=== PATIENT | male | born 1970 | race Caucasian/White ===

== ENCOUNTER 2017-02-08 07:47 | Outpatient (CLI) | payer MEDICARE, OTHER ==
[~2017-02-08 07:47] MED LIST: DIPHENHYDRAMINE HCL 50 MG/ML VIAL IV PRN; FAMOTIDINE INJ/PF 20 MG/2 ML SDV IV PRN; IRON DEXTRAN COMPLEX 25 MG in NORMAL SALINE 100 ML IV PRN; IRON DEXTRAN COMPLEX 25 MG in SYRINGE, DISPOSABLE, 1 EACH IV PRN; IRON DEXTRAN COMPLEX IV PRN; METHYLPREDNISOLONE INJ 125 MG/2 ML SDV IV PRN; NORMAL SALINE 250 ML IV PRN; NORMAL SALINE IV PRN
[2017-02-08 09:10] VITALS: BP 114/68
== END 2017-02-08 15:15 | disposition home or self-care (01) ==
LOC: II 07:47 → 5TH 07:51 → II 15:15
PROVIDERS: ATTEND Internal Medicine Medical Oncology
PROC: 3E033GC Introduction of Other Therapeutic Substance into Peripheral Vein, Percutaneous Approach (ICD-10-PCS; principal; 2017-02-08)
DX: D50.8 Other iron deficiency anemias (principal); K51.018 Ulcerative (chronic) pancolitis with other complication
CPT/HCPCS: 96367; 96375; J1200; J1750; J2930; J7040; J3490; S0028; 96365

== ENCOUNTER → 2017-03-23 | Outpatient (CLI) | payer MEDICARE ==
--- NOTE | 2017-03-23 14:07 | RADIOLOGY REPORT (SQ) ---
EXAM DESCRIPTION: MRI LUMBAR SPINE WITHOUT COMPLETED DATE/TIME: 03/23/2017 1:37 pm REASON FOR STUDY: LUMBAR SPONDYLOSIS (M47.897), M47.892 OTHER SPONDYLOSIS, CERVICAL REGION M45.0 A NKYLOSING SPONDYLITIS OF MULTIPLE SITES IN SPINE M47.897 OTHER SPONDYLOSIS, LUMBOSACRAL REGION COMPARISON: None. TECHNIQUE: Sagittal and Axial imaging includes T1, T2, STIR and gradient echo sequences. Coronal T2/ HASTE imaging. LIMITATIONS: None. FINDINGS: VISUALIZED UPPER ABDOMEN: Limited evaluation. No acute or suspicious findings suggested. SEGMENTATION: No transitional anatomy. The lowest well-developed disc space is labeled L5-S1. ALIGNMENT: Anatomic. VERTEBRAE: Intact. BONE MARROW: Normal. No marrow replacement or reactive changes. DISC SIGNAL: There is loss of normal T2 signal seen within the disc spaces. There is some increased signal seen within the disc space at L3-L4 which may represent underlying edema. POSTERIOR ELEMENTS: Generally intact. No pars defect evident. HARDWARE: None in the spine. CORD AND CONUS: Normal in size and signal intensity. Conus at the appropriate level. SOFT TISSUES: No aortic aneurysm seen. No bulky retroperitoneal adenopathy or mass. No paraspinal mas s or fluid. L1-L2: No significant spinal stenosis or exit foraminal stenosis. No significant disc bulging. Ther e is facet hypertrophy. L2-L3: Minimal disc bulging. Facet hypertrophy. No significant spinal canal stenosis no neural fora zoe narrowing. L3-L4: Degenerative disc space narrowing and edema within the disc space. There is facet hypertrophy . Mild disc bulging. No focal disc protrusion. No spinal canal stenosis. No neural foraminal narr owing. L4-L5: Circumferential disc bulging causing effacement of the anterior thecal sac. There is facet hy pertrophy and mild ligamentum flavum thickening. Minimal to mild spinal canal stenosis. Moderate bi lateral neural foraminal narrowing. L5-S1: Circumferential disc bulging without focal disc protrusion. Facet hypertrophy mild ligamentum flavum thickening. No spinal canal stenosis. Mild -moderate bilateral neural foraminal narrowing. LOWER THORACIC: Incompletely imaged. No stenosis seen. SACRUM: Visualized upper sacrum intact. OTHER: No other significant findings. IMPRESSION: 1. Multilevel degenerative disc disease and facet disease throughout the lumbar spine as detailed above. No acute fracture. Spinal alignment is intact. 2. Minimal to mild spinal canal stenosis noted at L4-L5 secondary to disc and facet disease. 3. New degenerative neural foraminal narrowing noted bilaterally at L4-L5 which is moderate. Degene rative neural foraminal narrowing noted L5-S1 bilaterally which is [id number]. TECHNICAL DOCUMENTATION: JOB ID: [id number] [employer]- All Rights Reserved
--- NOTE | 2017-03-23 14:13 | RADIOLOGY REPORT (SQ) ---
EXAM DESCRIPTION: MRI CERVICAL SPINE WITHOUT COMPLETED DATE/TIME: 03/23/2017 1:37 pm REASON FOR STUDY: CERVICAL SPONDYLOSIS (M47.892) M47.892 OTHER SPONDYLOSIS, CERVICAL REGION M45.0 ANKYLOSING SPONDYLITIS OF MULTIPLE SITES IN SPINE M47.897 OTHER SPONDYLOSIS, LUMBOSACRAL REGION COMPARISON: 05/25/2013 TECHNIQUE: Sagittal and Axial imaging includes T1, T2, STIR and gradient echo sequences. LIMITATIONS: None. FINDINGS: ALIGNMENT: There is straightening of the normal cervical lordosis. Alignment is otherwise intact. VERTEBRAE: Intact. There appears to be some ankylosis of the osteophytes along the anterior surface of the cervical spine. BONE MARROW: Heterogeneous marrow signal likely representing fatty replacement. No worrisome lesion. DISCS: There is loss of normal signal seen within the disc spaces throughout suggestive of degenerati ve disc disease. Loss of signal is most pronounced in the lower cervical spine. HARDWARE: None in the spine. CORD AND BASE OF BRAIN: Normal in size and signal intensity. SOFT TISSUES: No soft tissue masses. C1-C2: No significant spinal stenosis. C2-C3: No significant spinal stenosis or exit foraminal stenosis. C3-C4: Disc bulging without focal disc protrusion. No significant spinal canal stenosis. No neural foraminal narrowing. C4-C5: Circumferential disc bulging without focal disc protrusion. No neural foraminal narrowing. N o significant spinal canal stenosis. C5-C6: Circumferential disc bulging without focal disc protrusion. Mild bilateral neural foraminal n arrowing. No significant spinal canal stenosis. C6-C7: Circumferential disc bulging without focal disc protrusion. Mild bilateral neural foraminal n arrowing. No spinal canal stenosis. C7-T1: No significant spinal stenosis or exit foraminal stenosis. UPPER THORACIC: Incompletely imaged. No significant spinal stenosis or exit foraminal stenosis. OTHER: No other significant finding. IMPRESSION: Multilevel degenerative disc disease and spondylosis of the cervical spine most pronounc ed in the lowers the cervical spine. This appears to have progressed in comparison to the study from 2012. There also appears to be some ankylosis of the osteophytes along the anterior surface of spin e. There is straightening of the normal cervical lordosis. No significant spinal canal stenosis. T here is neural foraminal narrowing noted at C5-C6 and C6-C7 which is mild in nature. TECHNICAL DOCUMENTATION: JOB ID: [id number] [facility] [employer]- All Rights Reserved
--- NOTE | 2017-03-23 14:16 | RADIOLOGY REPORT (SQ) ---
EXAM DESCRIPTION: STERNUM COMPLETED DATE/TIME: 03/23/2017 2:07 pm REASON FOR STUDY: CHEST PAIN(R07.89)ANKYLOSING SPONDYLITIS OF MULTIPLE SITES IN SPINE (M45.0) M47.89 2 OTHER SPONDYLOSIS, CERVICAL REGION M45.0 ANKYLOSING SPONDYLITIS OF MULTIPLE SITES IN SPINE M47.89 7 OTHER SPONDYLOSIS, LUMBOSACRAL REGION COMPARISON: None. NUMBER OF VIEWS: Two views. TECHNIQUE: Lateral and AP and/or oblique views of the sternum. LIMITATIONS: None. FINDINGS: There is no acute or significant bone, joint or soft tissue abnormality. OTHER: No other significant finding. IMPRESSION: NEGATIVE STUDY OF THE STERNUM. TECHNICAL DOCUMENTATION: JOB ID: [id number] [employer] All Rights Reserved
== END ==
LOC: RAD 12:12
PROVIDERS: ATTEND Pain Medicine Interventional Pain Medicine
DX: M47.892 Other spondylosis, cervical region (principal); M45.0 Ankylosing spondylitis of multiple sites in spine; M47.897 Other spondylosis, lumbosacral region
CPT/HCPCS: 71120; 72141; 72148

== ENCOUNTER 2017-07-03 14:05 | Emergency (ER) | payer MEDICARE ==
--- NOTE | 2017-07-03 14:23 | ER Document Report ---
ED Medical Screen (RME) - General Chief Complaint: Diarrhea Stated Complaint: DIARRHEA Time Seen by Provider: 07/03/17 14:18 Notes: This 46-year-old male patient complaining of 3 day history of nausea with diarrhea. Reports he has diarrhea every 1 hour. He states he cannot eat but really has no appetite to eat. He is vague about whether or not there have been fevers. I have greeted and performed a rapid initial assessment of this patient. A comprehensive ED assessment and evaluation of the patient, analysis of test results and completion of the medical decision making process will be conducted by additional ED providers. TRAVEL OUTSIDE OF THE [place] IN LAST 30 DAYS: No - Related Data Allergies/Adverse Reactions: morphine [Morphine] Allergy (Verified 07/03/17 14:09) Past Medical History - Past Medical History Cardiac Medical History: Denies: Hx Heart Attack, Hx Hypertension Pulmonary Medical History: Denies: Hx Asthma, Hx Tuberculosis Neurological Medical History: Denies: Hx Cerebrovascular Accident, Hx Seizures Renal/ Medical History: Reports: Hx Kidney Stones. Denies: Hx Peritoneal Dialysis GI Medical History: Denies: Hx Hepatitis, Hx Hiatal Hernia, Hx Ulcer Musculoskeltal Medical History: Reports Hx Arthritis Infectious Medical History: Denies: Hx Hepatitis Past Surgical History: Reports: Hx Abdominal Surgery - part of intestine removed , Hx Bowel Surgery, Hx Orthopedic Surgery - bilateral hip replacement. Denies: Hx Open Heart Surgery, Hx Pacemaker - Immunizations Hx Diphtheria, Pertussis, Tetanus Vaccination: Yes Physical Exam - Vital signs Vitals: Temp Pulse Resp BP Pulse Ox 98.3 F 81 16 124/81 98 07/03/17 14:09 07/03/17 14:09 07/03/17 14:09 07/03/17 14:09 07/03/17 14:09 Course - Vital Signs Vital signs: Temp Pulse Resp BP Pulse Ox 98.3 F 81 16 124/81 98 07/03/17 14:09 07/03/17 14:09 07/03/17 14:09 07/03/17 14:09 07/03/17 14:09
--- NOTE | 2017-07-03 14:49 | ER Document Report ---
ED GI/ - General Chief Complaint: Diarrhea Stated Complaint: DIARRHEA Time Seen by Provider: 07/03/17 14:18 Mode of Arrival: Ambulatory Information source: Patient TRAVEL OUTSIDE OF THE [place] IN LAST 30 DAYS: No - HPI Patient complains to provider of: Diarrhea - OUTPUT FROM ILEOSTOMY MORE PROFUSE & WATERY Onset: Other - 2 DAYS AGO Timing/Duration: Gradual Quality of pain: No pain Context: denies: Bad food, Lifting, Out of the country travel, , Recent trauma, Other - NO RECENT ANTIBx. Associated symptoms: Chills, Fever - UNSURE, Sweaty, Other - WEAKNESS. denies: Dizzy, Nausea, Vomiting Exacerbated by: Food Relieved by: Denies Similar symptoms previously: Yes - NOT RECENT Recently seen / treated by doctor: Yes - PAIN MANAGEMENT - Related Data Allergies/Adverse Reactions: morphine [Morphine] Allergy (Verified 07/03/17 14:09) Past Medical History - General Information source: Patient - Social History Smoking Status: Unknown if Ever Smoked Cigarette use (# per day): No Chew tobacco use (# tins/day): No Frequency of alcohol use: None Drug Abuse: None Lives with: Spouse/Significant other Family History: Reviewed & Not Pertinent Patient has suicidal ideation: No Patient has homicidal ideation: No - Past Medical History Cardiac Medical History: Reports: None Denies: Hx Heart Attack, Hx Hypertension Pulmonary Medical History: Reports: None Denies: Hx Asthma, Hx Tuberculosis EENT Medical History: Reports: None Neurological Medical History: Reports: None. Denies: Hx Cerebrovascular Accident, Hx Seizures Endocrine Medical History: Reports: None Renal/ Medical History: Reports: Hx Kidney Stones. Denies: Hx Peritoneal Dialysis Malignancy Medical History: Reports None GI Medical History: Reports: Hx Ulcerative Colitis - S/P TOTAL COLECTOMY. Denies: Hx Hepatitis, Hx Hiatal Hernia, Hx Ulcer Musculoskeltal Medical History: Reports Hx Arthritis, Reports Other - ANKYLOSING SPONDYLITIS Skin Medical History: Reports None Psychiatric Medical History: Reports: None Infectious Medical History: Denies: Hx Hepatitis Past Surgical History: Reports: Hx Abdominal Surgery - part of intestine removed , Hx Bowel Surgery - TOTAL COLECTOMY, Hx Colostomy, Hx Orthopedic Surgery - bilateral hip replacement. Denies: Hx Open Heart Surgery, Hx Pacemaker - Immunizations Hx Diphtheria, Pertussis, Tetanus Vaccination: Yes Review of Systems - Review of Systems Constitutional: See HPI EENT: No symptoms reported Cardiovascular: No symptoms reported Respiratory: No symptoms reported Gastrointestinal: See HPI Genitourinary: See HPI, Flank pain Musculoskeletal: See HPI Skin: No symptoms reported Neurological/Psychological: No symptoms reported Physical Exam - Vital signs Vitals: Temp Pulse Resp BP Pulse Ox 98.3 F 81 16 124/81 98 07/03/17 14:09 07/03/17 14:09 07/03/17 14:09 07/03/17 14:09 07/03/17 14:09 Interpretation: Normal. No: Tachycardic, Tachypneic, Febrile - General General appearance: Appears well, Alert In distress: None - HEENT Head: Normocephalic Eyes: Normal Conjunctiva: Normal Ears: Normal Nasal: Normal Mouth/Lips: Normal Mucous membranes: Dry - MILDLY Pharynx: Normal Neck: Normal - Respiratory Respiratory status: No respiratory distress Breath sounds: Normal - Cardiovascular Rhythm: Regular Heart sounds: Normal auscultation Murmur: No - Abdominal Inspection: Normal Distension: No distension - Back Back: Normal - Extremities General upper extremity: Normal inspection General lower extremity: Normal inspection - Neurological Neuro grossly intact: Yes Cognition: Normal Orientation: AAOx4 - Psychological Associated symptoms: Normal affect, Normal mood - Skin Skin Temperature: Warm Skin Moisture: Dry Skin Color: Normal Skin Turgor: Elastic Course - Vital Signs Vital signs: Temp Pulse Resp BP Pulse Ox 98.3 F 81 16 124/81 98 07/03/17 14:09 07/03/17 14:09 07/03/17 14:09 07/03/17 14:09 07/03/17 14:09 - Laboratory Result Diagrams: 07/03/17 14:39 07/03/17 14:39 Laboratory results interpreted by me: 07/03/17 07/03/17 07/03/17 14:33 14:39 14:39 RBC 5.56 H RDW 14.9 H Seg Neutrophils % 79.1 H Lymphocytes % 12.7 L Carbon Dioxide 21 L Iron AST 15 L Urine Blood SMALL H 07/03/17 14:39 RBC RDW Seg Neutrophils % Lymphocytes % Carbon Dioxide Iron 25.4 L AST Urine Blood Discharge - Discharge Clinical Impression: Enteritis due to Clostridium difficile, Dehydration, Bilateral nephrolithiasis Condition: Stable Disposition: HOME, SELF-CARE Instructions: C. (Clostridium) Difficile Infection ([facility]), Clear Liquid Diet ( [facility]), Gastroenteritis (adult) ([facility]) Additional Instructions: TAKE METRONIDAZOLE DIRECTED. CONTINUE YOUR OTHER MEDS BEFORE. DRINK PLENTY OF FLUIDS TO AVOID DEHYDRATION. FOLLOW UP WITH YOUR PRIMARY CARE PROVIDER, CALL TOMORROW FOR APPOINTMENT. RETURN TO E.R. PROMPTLY IF YOU GET WORSE IN ANY WAY. Prescriptions: Metronidazole [Flagyl 500 mg Tablet] 500 mg PO TID #30 tablet Referrals: BRENNAN HA MD [Primary Care Provider] - Follow up in 3-5 days
[2017-07-03 15:05] LABS: APPEARANCE,URINE CLEAR; BILIRUBIN,URINE NEGATIVE (NEGATIVE); GLUCOSE, URINE NEGATIVE (NEGATIVE); KETONES,URINE NEGATIVE (NEGATIVE); LEUKOCYTE ESTERASE,URINE NEGATIVE (NEGATIVE); NITRITE,URINE NEGATIVE (NEGATIVE); PROTEIN,URINE NEGATIVE (NEGATIVE); URINE SPECIFIC GRAVITY 1.009; UROBILINOGEN,URINE NEGATIVE mg/dL (<2.0)
[2017-07-03 15:10] LABS: ABSOLUTE EOSINOPHILS # (AUTO) 0.1 10^3/uL (0.0-0.6); ABSOLUTE LYMPHOCYTES (AUTO) 1.1 10^3/uL (0.5-4.7); ABSOLUTE MONOCYTES (AUTO) 0.6 10^3/uL (0.1-1.4); ABSOLUTE NEUT (AUTO) 7.1 10^3/uL (1.7-8.2); BASOPHILS % (AUTO) 0.5 % (0-2); EOSINOPHILS % (AUTO) 1.1 % (0-6); HEMATOCRIT 45.8 % (37.9-51.0); HEMOGLOBIN 15.4 g/dL (13.5-17.0); HGB HCT DIFFERENCE 0.4; LYMPHOCYTES % (AUTO) 12.7 % (13-45); MEAN CORPUSCULAR HEMOGLOBIN 27.6 pg (27.0-33.4); MEAN CORPUSCULAR HGB CONC 33.6 g/dL (32.0-36.0); MEAN CORPUSCULAR VOLUME 82 fl (80-97); MONOCYTES % (AUTO) 6.6 % (3-13); RED BLOOD COUNT 5.56 10^6/uL (4.35-5.55); RED CELL DISTRIBUTION WIDTH 14.9 % (11.5-14.0); SEGMENTED NEUTROPHILS % (AUTO) 79.1 % (42-78); WHITE BLOOD COUNT 8.9 10^3/uL (4.0-10.5)
[2017-07-03 15:14] LABS: ALANINE AMINOTRANSFERASE 21 U/L (21-72); ALBUMIN 4.6 g/dL (3.5-5.0); ALKALINE PHOSPHATASE 88 U/L (38-126); ANION GAP 18 (5-19); ASPARTATE AMINO TRANSFERASE 15 U/L (17-59); BILIRUBIN,DIRECT 0.3 mg/dL (0.0-0.4); BILIRUBIN,TOTAL 0.4 mg/dL (0.2-1.3); BLOOD UREA NITROGEN 13 mg/dL (7-20); CALCIUM 9.8 mg/dL (8.4-10.2); CARBON DIOXIDE 21 mmol/L (22-30); CHLORIDE 105 mmol/L (98-107); CREATININE RESULT 1.03 mg/dL (0.52-1.25); GLUCOSE 87 mg/dL (75-110); MAGNESIUM 2.3 mg/dL (1.6-2.3); POTASSIUM 4.4 mmol/L (3.6-5.0); SODIUM 143.7 mmol/L (137-145); TOTAL PROTEIN 7.9 g/dL (6.3-8.2)
[2017-07-03] MEDS ORDERED: METRONIDAZOLE 500 MG/NS RTU 100 ML IV ONE (15:57)
[2017-07-03] MEDS ORDERED: NORMAL SALINE 1000 ML 1,000 ML IV ONE ×2 (15:58→17:39)
--- NOTE | 2017-07-03 18:44 | RADIOLOGY REPORT (SQ) ---
EXAM DESCRIPTION: CT LTD RENAL STONE PROTOCOL ON COMPLETED DATE/TIME: 07/03/2017 6:09 pm REASON FOR STUDY: R. FLANK PAIN COMPARISON: 2011. TECHNIQUE: CT scan of the abdomen and pelvis performed without intravenous or oral contrast. Images reviewed with lung, soft tissue, and bone windows. Reconstructed coronal and sagittal MPR images revi ewed. All images stored on PACS. All CT scanners at this facility use dose modulation, iterative reconstruction, and/or weight based d osing when appropriate to reduce radiation dose to as low as reasonably achievable (ALARA). [facility]: Dose Right [facility]: CareDose [facility]: Dose Right [facility]: Teradose 4D [facility]: Smart [email or web address] RADIATION DOSE: Up-to-date CT equipment and radiation dose reduction techniques were employed. CTDIv ol: 8.4 mGy. DLP: 448 mGy-cm.mGy. LIMITATIONS: Bilateral hip replacement artifact limits assessment of the pelvis to include the bladd er base and distal ureters. FINDINGS: LOWER CHEST: No significant findings. No nodules or infiltrates. NON-CONTRASTED LIVER, SPLEEN, ADRENALS: Evaluation limited by lack of IV contrast. No identified sign ificant masses. PANCREAS: No masses. No peripancreatic inflammatory changes. GALLBLADDER: No identified stones by CT criteria. No inflammatory changes to suggest cholecystitis. RIGHT KIDNEY AND URETER: Punctate stones throughout without evidence of obstruction. No ureteral cherri culi as assessed. LEFT KIDNEY AND URETER: Punctate nonobstructing stones. No ureteral calculi as assessed. No evidenc e of hydronephrosis. AORTA AND RETROPERITONEUM: No aneurysm. No retroperitoneal masses or adenopathy. BOWEL AND PERITONEAL CAVITY: Near complete colectomy. No evidence of mechanical obstruction. No asc ites or abnormal gas or gross inflammatory process related to bowel. APPENDIX: Surgically absent. PELVIS, BLADDER, AND ABDOMINAL WALL:Partially obscured as above. As assessed, bladder unremarkable. No abdominal wall mass or hernia evident. BONES: No significant findings. OTHER: No other significant finding. IMPRESSION: 1. Bilateral nonobstructing renal calculi. No hydronephrosis. No ureteral or bladder stones (allowing for artifact which obscures the distal ureters and bladder. 2. No acute or suspicio us abdominopelvic abnormality. TECHNICAL DOCUMENTATION: JOB ID: [id number] Quality ID # [id number]: Final reports with documentation of one or more dose reduction techniques (e.g., Au tomated exposure control, adjustment of the mA and/or kV according to patient size, use of iterative reconstruction technique) 2010 [employer]- All Rights Reserved
[2017-07-03 21:41] VITALS: BP 122/76
== END 2017-07-03 19:49 | disposition home or self-care (01) ==
LOC: ER 14:05
DX: A04.72 Enterocolitis due to Clostridium difficile, not specified as recurrent (principal); E86.0 Dehydration; N20.0 Calculus of kidney; R19.7 Diarrhea, unspecified
CPT/HCPCS: 99284; 96365; 36415; 87045; 89055; 87205; 83540; 83735; 85025; 82272; 80053; 81001; 87493; 76380; J7030

== ENCOUNTER 2017-08-11 07:39 | Outpatient (CLI) | payer MEDICARE ==
[2017-08-11] MEDS ORDERED: NORMAL SALINE 250 ML IV PRN (08:04)
[2017-08-11] MEDS ORDERED: IRON DEXTRAN COMPLEX 975 MG in NORMAL SALINE 1000 ML 1,000 ML IV PRN (08:11)
[2017-08-11] MEDS ORDERED: IRON DEXTRAN COMPLEX 25 MG in SYRINGE, DISPOSABLE, 1 EACH IV PRN (08:12)
[2017-08-11] MEDS ORDERED: DIPHENHYDRAMINE HCL 50 MG/ML VIAL IV PRN (08:14)
[2017-08-11] MEDS ORDERED: FAMOTIDINE INJ/PF 20 MG/2 ML SDV IV PRN (08:15)
[2017-08-11] MEDS ORDERED: METHYLPREDNISOLONE INJ 125 MG/2 ML SDV IV PRN (08:22)
[2017-08-11 09:02] VITALS: BP 125/75
== END 2017-08-11 13:01 | disposition home or self-care (01) ==
LOC: II 07:39 → 5TH 07:41 → II 13:01
PROVIDERS: ATTEND Internal Medicine Medical Oncology
PROC: 3E033GC Introduction of Other Therapeutic Substance into Peripheral Vein, Percutaneous Approach (ICD-10-PCS; principal; 2017-08-11)
DX: D50.8 Other iron deficiency anemias (principal); E61.1 Iron deficiency; K51.018 Ulcerative (chronic) pancolitis with other complication
CPT/HCPCS: 96365; 96366; 96374; 96375; 96360; J1200; J1750; J2930; J7030; J3490; S0028; 96361

== ENCOUNTER → 2017-09-06 | Outpatient (CLI) | payer MEDICARE ==
--- NOTE | 2017-09-06 15:47 | RADIOLOGY REPORT (SQ) ---
EXAM DESCRIPTION: CLAVICLE RIGHT COMPLETED DATE/TIME: 09/06/2017 2:23 pm REASON FOR STUDY: RIGHT SHOULDER PAIN (M25.511), OTHER SPECIFIED DISORDERS OF SHOULER (M89.8X M25.51 1 PAIN IN RIGHT SHOULDER M89.8X1 OTHER SPECIFIED DISORDERS OF BONE, SHOULDER COMPARISON: None. NUMBER OF VIEWS: Two views. TECHNIQUE: Frontal and angled images were acquired of the right clavicle. LIMITATIONS: None. FINDINGS: MINERALIZATION: Normal. BONES: No acute fracture or dislocation. No worrisome bone lesions. SOFT TISSUES: No obvious swelling or foreign body. OTHER: No other significant finding. IMPRESSION: NEGATIVE STUDY OF THE RIGHT CLAVICLE. NO RADIOGRAPHIC EVIDENCE OF ACUTE INJURY. TECHNICAL DOCUMENTATION: JOB ID: [id number] [employer]- All Rights Reserved
--- NOTE | 2017-09-06 15:47 | RADIOLOGY REPORT (SQ) ---
EXAM DESCRIPTION: SHOULDER RIGHT 2 OR MORE VIEWS COMPLETED DATE/TIME: 09/06/2017 2:23 pm REASON FOR STUDY: RIGHT SHOULDER PAIN (M25.511), OTHER SPECIFIED DISORDERS OF SHOULER (M89.8X M25.51 1 PAIN IN RIGHT SHOULDER M89.8X1 OTHER SPECIFIED DISORDERS OF BONE, SHOULDER COMPARISON: None. NUMBER OF VIEWS: Three views. TECHNIQUE: Internal rotation, external rotation, and Y view images acquired of the right shoulder. LIMITATIONS: None. FINDINGS: MINERALIZATION: Normal. BONES: No acute fracture or dislocation. No worrisome bone lesions. JOINTS: No dislocation. VISUALIZED LUNGS AND RIBS: No pneumothorax. No rib fracture. SOFT TISSUES: No radiopaque foreign body. OTHER: No other significant finding. IMPRESSION: NEGATIVE STUDY OF THE RIGHT SHOULDER. NO RADIOGRAPHIC EVIDENCE OF ACUTE INJURY. TECHNICAL DOCUMENTATION: JOB ID: [id number] [employer]- All Rights Reserved
== END ==
LOC: RAD 13:54
PROVIDERS: ATTEND Internal Medicine
DX: M25.511 Pain in right shoulder (principal); M89.8X1 Other specified disorders of bone, shoulder

== ENCOUNTER → 2017-11-10 | Outpatient (CLI) | payer MEDICARE ==
[2017-11-10 13:32] LABS: HEMATOCRIT 51.3 % (37.9-51.0); HEMOGLOBIN 17.2 g/dL (13.5-17.0); MEAN CORPUSCULAR HEMOGLOBIN 28.9 pg (27.0-33.4); MEAN CORPUSCULAR HGB CONC 33.6 g/dL (32.0-36.0); MEAN CORPUSCULAR VOLUME 86 fl (80-97); PLATELET COUNT 332 10^3/uL (150-450); RED BLOOD COUNT 5.96 10^6/uL (4.35-5.55); RED CELL DISTRIBUTION WIDTH 17.1 % (11.5-14.0); WHITE BLOOD COUNT 14.7 10^3/uL (4.0-10.5)
[2017-11-10 13:53] LABS: ALANINE AMINOTRANSFERASE 46 U/L (21-72); ALBUMIN 4.5 g/dL (3.5-5.0); ALKALINE PHOSPHATASE 71 U/L (38-126); ANION GAP 14 (5-19); ASPARTATE AMINO TRANSFERASE 15 U/L (17-59); BILIRUBIN,DIRECT 0.2 mg/dL (0.0-0.4); BILIRUBIN,TOTAL 0.6 mg/dL (0.2-1.3); BLOOD UREA NITROGEN 24 mg/dL (7-20); C-REACTIVE PROTEIN 44.6 mg/L (<10.0); CALCIUM 10.7 mg/dL (8.4-10.2); CARBON DIOXIDE 26 mmol/L (22-30); CHLORIDE 104 mmol/L (98-107); GLUCOSE 109 mg/dL (75-110); POTASSIUM 4.8 mmol/L (3.6-5.0); SODIUM 143.5 mmol/L (137-145); TOTAL PROTEIN 7.3 g/dL (6.3-8.2)
== END ==
LOC: OD 12:50
PROVIDERS: ATTEND Internal Medicine Gastroenterology
DX: R10.9 Unspecified abdominal pain (principal)
CPT/HCPCS: 36415; 80048; 80076; 85027; 86140

== ENCOUNTER 2017-11-23 12:14 | Emergency (ER) | payer MEDICARE ==
[2017-11-23] MEDS ORDERED: ONDANSETRON 4 MG TAB.RAPDIS PO ONE (14:00)
--- NOTE | 2017-11-23 14:02 | ER Document Report ---
ED Medical Screen (RME) - General Chief Complaint: Abdominal Pain Stated Complaint: ABDOMINAL PAIN Time Seen by Provider: 11/23/17 13:55 Notes: RME DISCLOSURE I have seen this patient as part of a Rapid Medical Evaluation and, if applicable, placed any initially appropriate orders. The patient will be seen and fully evaluated, including a full history and physical exam, by a provider ( in Main ED or Fast Track) when a room becomes available. 38-year-old male here with complaints of diffuse abdominal pain ongoing for the past 2 weeks. He states that the pain feels like his previous "pouchitis" ( referring to diverticulitis) but that he is also having hot flashes when he has the pain. His GI doctor just recently prescribed him Cipro to treat diverticulitis but did not obtain a CT scan or x-rays. Patient states he started the Cipro 10 days ago. TRAVEL OUTSIDE OF THE [place] IN LAST 30 DAYS: No - Related Data Allergies/Adverse Reactions: morphine [Morphine] Allergy (Intermediate, Verified 11/23/17 13:47) Generalized rash Past Medical History - Past Medical History Cardiac Medical History: Denies: Hx Heart Attack, Hx Hypertension Pulmonary Medical History: Denies: Hx Asthma, Hx Tuberculosis Neurological Medical History: Denies: Hx Cerebrovascular Accident, Hx Seizures Renal/ Medical History: Reports: Hx Kidney Stones. Denies: Hx Peritoneal Dialysis GI Medical History: Reports: Hx Ulcerative Colitis - S/P TOTAL COLECTOMY. Denies: Hx Hepatitis, Hx Hiatal Hernia, Hx Ulcer Musculoskeltal Medical History: Reports Hx Arthritis Infectious Medical History: Denies: Hx Hepatitis Past Surgical History: Reports: Hx Abdominal Surgery - part of intestine removed , Hx Bowel Surgery - TOTAL COLECTOMY, Hx Colostomy, Hx Orthopedic Surgery - bilateral hip replacement. Denies: Hx Open Heart Surgery, Hx Pacemaker - Immunizations Hx Diphtheria, Pertussis, Tetanus Vaccination: Yes Physical Exam - Vital signs Vitals: Temp Pulse Resp BP Pulse Ox 98.1 F 107 H 18 132/85 H 95 11/23/17 12:29 11/23/17 12:29 11/23/17 12:29 11/23/17 12:29 11/23/17 12:29 Course - Vital Signs Vital signs: Temp Pulse Resp BP Pulse Ox 98.1 F 107 H 18 132/85 H 95 11/23/17 12:29 11/23/17 12:29 11/23/17 12:29 11/23/17 12:29 11/23/17 12:29
[2017-11-23 15:09] LABS: ABSOLUTE BASOPHILS # (AUTO) 0.1 10^3/uL (0.0-0.2); ABSOLUTE EOSINOPHILS # (AUTO) 0.1 10^3/uL (0.0-0.6); ABSOLUTE LYMPHOCYTES (AUTO) 1.3 10^3/uL (0.5-4.7); ABSOLUTE MONOCYTES (AUTO) 0.9 10^3/uL (0.1-1.4); ABSOLUTE NEUT (AUTO) 7.2 10^3/uL (1.7-8.2); BASOPHILS % (AUTO) 0.6 % (0-2); EOSINOPHILS % (AUTO) 1.3 % (0-6); HEMATOCRIT 52.5 % (37.9-51.0); HEMOGLOBIN 17.9 g/dL (13.5-17.0); LYMPHOCYTES % (AUTO) 13.2 % (13-45); MEAN CORPUSCULAR HEMOGLOBIN 29.9 pg (27.0-33.4); MEAN CORPUSCULAR VOLUME 88 fl (80-97); MONOCYTES % (AUTO) 9.5 % (3-13); PLATELET COUNT 348 10^3/uL (150-450); RED BLOOD COUNT 5.99 10^6/uL (4.35-5.55); RED CELL DISTRIBUTION WIDTH 16.9 % (11.5-14.0); SEGMENTED NEUTROPHILS % (AUTO) 75.4 % (42-78); TOTAL CELLS COUNTED % (AUTO) 100 %; WHITE BLOOD COUNT 9.6 10^3/uL (4.0-10.5)
[2017-11-23 15:28] LABS: ALANINE AMINOTRANSFERASE 59 U/L (21-72); ALBUMIN 4.5 g/dL (3.5-5.0); ALKALINE PHOSPHATASE 79 U/L (38-126); ANION GAP 11 (5-19); ASPARTATE AMINO TRANSFERASE 35 U/L (17-59); BILIRUBIN,DIRECT 0.4 mg/dL (0.0-0.4); BILIRUBIN,TOTAL 0.4 mg/dL (0.2-1.3); BLOOD UREA NITROGEN 32 mg/dL (7-20); CALCIUM 10.4 mg/dL (8.4-10.2); CARBON DIOXIDE 29 mmol/L (22-30); CHLORIDE 106 mmol/L (98-107); GLUCOSE 94 mg/dL (75-110); LIPASE 358.5 U/L (23-300); POTASSIUM 4.8 mmol/L (3.6-5.0); SODIUM 145.6 mmol/L (137-145); TOTAL PROTEIN 7.7 g/dL (6.3-8.2)
--- NOTE | 2017-11-23 16:01 | ER Document Report ---
ED General - General Mode of Arrival: Ambulatory Information source: Patient TRAVEL OUTSIDE OF THE [place] IN LAST 30 DAYS: No <CHRISTOPH SIMEON - Last Filed: 11/23/17 19:21> <MARCIALTALIASTEVENLINDSEY - Last Filed: 11/23/17 20:54> - General Chief Complaint: Abdominal Pain Stated Complaint: ABDOMINAL PAIN Time Seen by Provider: 11/23/17 13:55 - HPI Notes: 46-year-old male with a past medical history of a total colectomy after dealing with colitis and food poisoning presents today with complaints of epigastric abdominal pain that has been bothering him for the last 2 weeks. States pain is worse after eating, reports he gets chills, lasts until he has a bowel movement through his J pouch. Denies any nausea, vomiting. Denies any chest pain or shortness of breath. Denies any rashes. Patient does have a history of being C. difficile positive in the past. Has not tried any mqgw-qpa-fnxeutz medications. Patient has been following with Dr. Jon, GI specialist for this issue, does have a scheduled endoscope the end of November this month. Denies chest pain,palpitations, shortness of breath, dyspnea, nausea, vomiting, hematuria,blurred vision, double vision, loss of vision, speech changes, LH, dizziness, syncope, headaches, wheezing, ST, URI, neck pain, weakness, bladder dysfunction, saddle anesthesia, numbness or tingling in bilateral upper or lower extremities equally, muscle paralysis, weakness in bilateral upper or lower extremities equally or rash. Denies IV drug use. (CHRISTOPH SIMEON) - Related Data Allergies/Adverse Reactions: morphine [Morphine] Allergy (Intermediate, Verified 11/23/17 13:47) Generalized rash Past Medical History - General Information source: Patient, Relative - - Social History Smoking Status: Unknown if Ever Smoked Chew tobacco use (# tins/day): No Frequency of alcohol use: None Drug Abuse: None Family History: Reviewed & Not Pertinent Patient has suicidal ideation: No Patient has homicidal ideation: No - Past Medical History Cardiac Medical History: Denies: Hx Heart Attack, Hx Hypertension Pulmonary Medical History: Denies: Hx Asthma, Hx Tuberculosis Neurological Medical History: Denies: Hx Cerebrovascular Accident, Hx Seizures Renal/ Medical History: Reports: Hx Kidney Stones. Denies: Hx Peritoneal Dialysis GI Medical History: Reports: Hx Ulcerative Colitis - S/P TOTAL COLECTOMY. Denies: Hx Hepatitis, Hx Hiatal Hernia, Hx Ulcer Musculoskeltal Medical History: Reports Hx Arthritis Infectious Medical History: Denies: Hx Hepatitis Past Surgical History: Reports: Hx Abdominal Surgery - part of intestine removed , Hx Bowel Surgery - TOTAL COLECTOMY, Hx Colostomy, Hx Orthopedic Surgery - bilateral hip replacement. Denies: Hx Open Heart Surgery, Hx Pacemaker - Immunizations Hx Diphtheria, Pertussis, Tetanus Vaccination: Yes <CHRISTOPH SIMEON Ganga - Last Filed: 11/23/17 19:21> Review of Systems <CHRISTOPH SIMEON Ganga - Last Filed: 11/23/17 19:21> <LINDSEY GANNON - Last Filed: 11/23/17 20:54> - Review of Systems Notes: REVIEW OF SYSTEMS: CONSTITUTIONAL : Denies fever, chills, or sweats. Denies recent illness. EENT: Denies eye, ear, throat, or mouth pain or symptoms. Denies nasal or sinus congestion or discharge. Denies throat, tongue, or mouth swelling or difficulty swallowing. CARDIOVASCULAR: Denies chest pain. Denies palpitations or racing or irregular heart beat. Denies ankle edema. RESPIRATORY: Denies cough, cold, or chest congestion. Denies shortness of breath, difficulty breathing, or wheezing. GASTROINTESTINAL: Reports epigastric abdomina. Deniesdistention. Denies nausea , vomiting, or diarrhea. Denies blood in vomitus, stools, or per rectum. Denies black, tarry stools. Denies constipation. GENITOURINARY: Denies difficulty urinating, painful urination, burning, frequency, blood in urine, or discharge. MUSCULOSKELETAL: Denies back or neck pain or stiffness. Denies joint pain or swelling. SKIN: Denies rash, lesions or sores. HEMATOLOGIC : Denies easy bruising or bleeding. LYMPHATIC: Denies swollen, enlarged glands. NEUROLOGICAL: Denies confusion or altered mental status. Denies passing out or loss of consciousness. Denies dizziness or lightheadedness. Denies headache. Denies weakness or paralysis or loss of use of either side. Denies problems with gait or speech. Denies sensory loss, numbness, or tingling. Denies seizures. PSYCHIATRIC: Denies anxiety or stress. Denies depression, suicidal ideation, or homicidal ideation. ALL OTHER SYSTEMS REVIEWED AND NEGATIVE. Dictation was performed using [employer] voice recognition software PHYSICAL EXAMINATION: GENERAL: Chronically ill, well-nourished and in no acute distress. HEAD: Atraumatic, normocephalic. EYES: Pupils equal round and reactive to light, extraocular movements intact, sclera anicteric, conjunctiva are normal. ENT: Nares patent, oropharynx clear without exudates. Moist mucous membranes. NECK: Normal range of motion, supple without lymphadenopathy LUNGS: Breath sounds clear to auscultation bilaterally and equal. No wheezes rales or rhonchi. HEART: Regular rate and rhythm without murmurs ABDOMEN: Soft, nontender, nondistended abdomen. Gastric tenderness, right upper quadrant tenderness on palpation. No rebound tenderness noted. No CVA tenderness appreciated bilaterally. No guarding, no rebound. No masses appreciated. Musculoskeletal: Normal range of motion, no pitting or edema. No cyanosis. NEUROLOGICAL: Cranial nerves grossly intact. Normal speech, normal gait. Normal sensory, motor exams PSYCH: Normal mood, normal affect. SKIN: Warm, Dry, normal turgor, no rashes or lesions noted. (CHRISTOPH SIMEON) - Vital signs Vitals: Temp Pulse Resp BP Pulse Ox 98.1 F 107 H 18 132/85 H 95 11/23/17 12:29 11/23/17 12:29 11/23/17 12:29 11/23/17 12:29 11/23/17 12:29 Course - Laboratory Result Diagrams: 11/23/17 14:30 11/23/17 14:30 <CHRISTOPH SIMEON - Last Filed: 11/23/17 19:21> - Laboratory Result Diagrams: 11/23/17 14:30 11/23/17 14:30 <LINDSEY GANNON - Last Filed: 11/23/17 20:54> - Re-evaluation Re-evalutation: 11/23/17 16:06 38-year-old male who is afebrile vitals are stable presents today for complaints of abdominal pain with chills for the last 2 weeks. Patient has a internal J-pouch from a critical total colectomy from 2011 from a history of ulcerative colitis. Patient did test positive for C. difficile. Creatinine elevated at 1.34 with a BUN of 32, last creatinine that was done in October was 0.89 with BUN of 24 on 11/10/17. No leukocytosis or anemia noted on CBC. CMP negative for any electrolyte disturbances. No hepatic dysfunction noted. Lipase slightly elevated. Consulted th Dr. Steve Ha guarding patient testing positive for C. difficile and elevated creatinine. Patient was given 1 L of IV fluids, started on IV Flagyl. does not feel that patient needed to be admitted, advised to have him follow-up with his snaker, Dr. Wilson and him outpatient. Advised prescription for Flagyl to manage his C. difficile, have him increase fluids and have him follow- up for repeat BMP to reassess creatinine function tomorrow. All questions and concerns by this provider. Patient verbalized understanding of plan of care and agreed with plan of care. Patient was discharged home with a strict understanding to have strict follow-up tomorrow and to return to the emergency room if symptoms become worse. Patient discharged home. After performing a Medical Screening Examination, I estimate there is LOW risk for ACUTE APPENDICITIS, BOWEL OBSTRUCTION, ACUTE CHOLECYSTITIS, PERFORATED DIVERTICULITIS, INCARCERATED HERNIA, PANCREATITIS, TESTICULAR TORSION or PERFORATED ULCER, thus I consider the discharge disposition reasonable. Also, there is no evidence or peritonitis, sepsis, or toxicity. I have reevaluated this patient multiple times and no significant life threatening changes are noted. The patient and I have discussed the diagnosis and risks, and we agree with discharging home with close follow-up with the understanding that symptoms and presentations can change. We also discussed returning to the Emergency Department immediately if new or worsening symptoms occur. We have discussed the symptoms which are most concerning (e.g., bloody stool, fever, changing or worsening pain, intractable vomiting - standard verbal up date) that necessitate immediate return. (CHRISTOPH SIMEON) 11/23/17 20:40 Patient's ultrasound shows no obstruction or concerning a normality. Patient states he was just treated with a prescription for Flagyl because of gastroenterology suspecting colitis, he states he just finished a 10 day course , he is requesting vancomycin, states he had treatment for C. difficile once before and he had to be treated with vancomycin. He does state he feels good and he wants to go home, he does state he will follow-up with both primary care and gastroenterology. Medication will be adjusted vancomycin, patient understands return precautions. (LINDSEY GANNON) - Vital Signs Vital signs: Temp Pulse Resp BP Pulse Ox 97.4 F 95 16 123/85 97 11/23/17 17:34 11/23/17 17:34 11/23/17 17:34 11/23/17 17:34 11/23/17 17:34 - Laboratory Laboratory results interpreted by me: 11/23/17 11/23/17 11/23/17 14:30 14:30 14:30 RBC 5.99 H Hgb 17.9 H Hct 52.5 H RDW 16.9 H Sodium 145.6 H BUN 32 H Creatinine 1.34 H Est GFR (Non-Af Amer) 57 L Calcium 10.4 H Amylase 117 H Lipase 358.5 H Urine Blood 11/23/17 14:55 RBC Hgb Hct RDW Sodium BUN Creatinine Est GFR (Non-Af Amer) Calcium Amylase Lipase Urine Blood SMALL H Discharge <CHRISTOPH SIMEON - Last Filed: 11/23/17 19:21> <LINDSEY GANNON - Last Filed: 11/23/17 20:54> - Discharge Clinical Impression: C. difficile diarrhea, Dehydration, mild Acute renal failure Qualifiers: Acute renal failure type: unspecified Qualified Code(s): N17.9 - Acute kidney failure, unspecified Condition: Good Disposition: HOME, SELF-CARE Instructions: Abdominal Pain ([facility]), C. (Clostridium) Difficile Infection ([facility]) , Dehydration ([facility]) Additional Instructions: C. (Clostridium) Difficile Infection C. difficile bacteria are everywhere - in soil, air, water, human and animal feces, and on most surfaces. The bacteria don't create problems until they grow in abnormally large numbers in the intestinal tract of people taking antibiotics or other antimicrobial drugs. Then, C. difficile can cause symptoms ranging from diarrhea to life-threatening inflammations of the colon. According to the Centers for Disease Control and Prevention, each year in the [place] C. difficile is responsible for tens of thousands of cases of diarrhea and at least 5,000 deaths. And the problem is getting worse. The number of C. difficile infections doubled between 1992 and 2002, with most of the increase coming after 1999. Your intestinal tract contains hundreds of kinds of bacteria (intestinal lani). Many are essential, helping to synthesize certain vitamins and stimulating the immune system. And some play a nguyen role in suppressing the growth of harmful organisms. But when you take an antibiotic to treat an infection, it often destroys these beneficial bacteria as well as the bacteria that's causing your illness. Without enough healthy bacteria, dangerous pathogens such as C. difficile can quickly grow out of control. Once it takes hold, C. difficile can produce two virulent toxins that attack the lining of the intestine. The toxins destroy cells and produce pseudomembranes - telltale patches (plaques) of inflammatory cells and decaying cellular debris on the interior surface of the colon. Almost any antibiotic can cause harmful bacteria to proliferate in the intestine, but ampicillin, amoxicillin, clindamycin, fluoroquinolones and cephalosporins are most often implicated in C. difficile infections. The use of broad-spectrum drugs that target a wide range of bacteria and the taking of antibiotics for a prolonged period increase the chance of infection. Other antimicrobials, including antiviral and antifungal drugs, and chemotherapy medications also can lead to an increased risk of infection with C. difficile. It's also a growing problem among otherwise healthy people. And although the infection can usually be controlled with antibiotics, virulent strains of C. difficile are now appearing that resist treatment with common medications. Dehydration Dehydration can result from vomiting or diarrhea, fever, or decreased intake of fluids. If severe, hospitalization and intravenous fluids may be required. Most cases are treated at home with fluids by mouth. For the next 24 hours, drink lots of clear fluids. In mild cases, this can be soda pop or sports drinks. For more severe dehydration, the doctor may recommend special fluids such as Pedialyte or Lytren. Try to get three liters ( 3 quarts) of fluid per day. If vomiting occurs, continue to drink the fluids frequently (every 15 to 20 minutes), but in small amounts (one or two ounces). Depending on the type of dehydration, the doctor may prescribe antinausea medicine or potassium replacements. Call the doctor or return for re-examination if you become progressively weak, vomit repeatedly, or have other new symptoms. follow up with Dr. Ha's office in the morning for repeat blood work. Follow-up with with Dr. Jon within 24 hours. Increase oral hydration, when he leaf size picker prescription today from the pharmacy, please by 2 or 3 bottles of Pedialyte to drink to replenish self. Prescriptions: Ondansetron [Zofran Odt 4 mg Tablet] 1 - 2 tab PO Q4HP PRN #10 tab.rapdis PRN Reason: Metronidazole [Flagyl 500 mg Tablet] 500 mg PO TID #30 tablet Vancomycin HCl 125 mg PO ASDIR PRN #40 capsule PRN Reason: Forms: Return to Work Referrals: BRENNAN HA MD [Primary Care Provider] - Follow up tomorrow AJAY JON MD [ACTIVE STAFF] - Follow up tomorrow
[2017-11-23] MEDS ORDERED: METRONIDAZOLE 500 MG/NS RTU 100 ML IV ONE (16:03)
[2017-11-23] MEDS ORDERED: NORMAL SALINE 1000 ML 1,000 ML IV PRN (16:09)
--- NOTE | 2017-11-23 16:27 | RADIOLOGY REPORT (SQ) ---
EXAM DESCRIPTION: CT ABD/PELVIS WITH IV ONLY COMPLETED DATE/TIME: 11/23/2017 4:08 pm REASON FOR STUDY: abd pain and diarrhea; eval diverticulitis colitis COMPARISON: None. TECHNIQUE: CT scan of the abdomen and pelvis performed using helical scanning technique with dynamic intravenous contrast injection. No oral contrast. Images reviewed with lung, soft tissue, and bone windows. Reconstructed coronal and sagittal MPR images reviewed. Delayed images for evaluation of the urinary system also acquired. All images stored on PACS. All CT scanners at this facility use dose modulation, iterative reconstruction, and/or weight based d osing when appropriate to reduce radiation dose to as low as reasonably achievable (ALARA). [facility]: Dose Right [facility]: CareDose [facility]: Dose Right [facility]: Teradose 4D [facility]: [employer] CONTRAST TYPE AND DOSE: contrast/concentration: Isovue 370.00 mg/ml; Total Contrast Delivered: 74.0 ml; Total Saline Delivered: 66.0 ml RENAL FUNCTION: BUN 24; CREATININE 0.89 RADIATION DOSE: . LIMITATIONS: Bilateral total hip arthroplasties confer beam hardening artifact limiting evaluation o f the adjacent bony and soft tissue structures. FINDINGS: LOWER CHEST: No significant findings. No nodules or infiltrates. LIVER: Normal size. No masses. No dilated ducts. SPLEEN: Normal size. No focal lesions. PANCREAS: No masses. No significant calcifications. No adjacent inflammation or peripancreatic fluid collections. Pancreatic duct not dilated. GALLBLADDER: No identified stones by CT criteria. No inflammatory changes to suggest cholecystitis. ADRENAL GLANDS: No significant masses or asymmetry. RIGHT KIDNEY AND URETER: Incidental note is made of atypical position of the kidney without vascular or urinary obstruction. No solid mass. Single 12 mm renal cyst. No significant calcifications. No hydronephrosis or hydroureter. LEFT KIDNEY AND URETER: No solid masses. No significant calcifications. No hydronephrosis or hydr oureter. AORTA AND VESSELS: No aneurysm. No dissection. Renal arteries, SMA, celiac without stenosis. RETROPERITONEUM: No retroperitoneal adenopathy, hemorrhage or masses. BOWEL AND PERITONEAL CAVITY: Status post colectomy with small bowel-small bowel anastomosis as well a s small bowel-rectal anastomosis. No evidence of anastomotic leak. No pneumoperitoneum. No focal i nflammatory changes. No bowel obstruction. APPENDIX: Surgically absent. PELVIS: No mass. No free fluid. Normal bladder. ABDOMINAL WALL: No masses. No hernias. BONES: Bilateral total hip arthroplasties. OTHER: No other significant finding. IMPRESSION: Status post colectomy without evidence of anastomotic leak. No pneumoperitoneum. No fo cherri inflammatory changes. TECHNICAL DOCUMENTATION: JOB ID: [id number] Quality ID # [id number]: Final reports with documentation of one or more dose reduction techniques (e.g., Au tomated exposure control, adjustment of the mA and/or kV according to patient size, use of iterative reconstruction technique) 2010 [employer]- All Rights Reserved Reading location - IP/workstation name: [email or web address]
[2017-11-23 17:37] LABS: APPEARANCE,URINE SLIGHTLY-CLOUDY; BILIRUBIN,URINE NEGATIVE (NEGATIVE); COLOR,URINE YELLOW; GLUCOSE, URINE NEGATIVE (NEGATIVE); KETONES,URINE NEGATIVE (NEGATIVE); LEUKOCYTE ESTERASE,URINE NEGATIVE (NEGATIVE); NITRITE,URINE NEGATIVE (NEGATIVE); PROTEIN,URINE NEGATIVE (NEGATIVE); URINE SPECIFIC GRAVITY 1.018; UROBILINOGEN,URINE NEGATIVE mg/dL (<2.0)
--- NOTE | 2017-11-23 20:40 | RADIOLOGY REPORT (SQ) ---
EXAM DESCRIPTION: U/S RETROPERITON LTD COMPLETED DATE/TIME: 11/23/2017 7:52 pm REASON FOR STUDY: elevated Cr from 11/06 COMPARISON: None. TECHNIQUE: Dynamic and static grayscale images acquired of the kidneys and bladder and recorded on P ACS. Additional selected color Doppler and spectral images recorded. LIMITATIONS: None. FINDINGS: RIGHT KIDNEY: Normal size. 2 cm and 1.8 cm parenchymal cysts. No solid or suspicious masses. No hydronephrosis. No calcifications. LEFT KIDNEY: Normal size. Normal echogenicity. No solid or suspicious masses. No hydronephrosi s. No calcifications. BLADDER: No masses. OTHER FINDINGS: No other significant finding. IMPRESSION: No evidence for obstruction. TECHNICAL DOCUMENTATION: JOB ID: [id number] [place]-72 2010 [employer]- All Rights Reserved Reading location - IP/workstation name: [email or web address]
[2017-11-23] MEDS ORDERED: VANCOMYCIN HCL INJ 500 MG VIAL PO ONE (20:53)
[2017-11-23 22:12] VITALS: BP 124/76
== END 2017-11-23 22:11 | disposition home or self-care (01) ==
LOC: ER 12:14
DX: R10.13 Epigastric pain (principal); N17.9 Acute kidney failure, unspecified; A04.72 Enterocolitis due to Clostridium difficile, not specified as recurrent; E86.0 Dehydration; Z90.49 Acquired absence of other specified parts of digestive tract; Z88.6 Allergy status to analgesic agent; Z93.3 Colostomy status
CPT/HCPCS: 99284; 96365; 36415; 87040; 87086; 82150; 83690; 85025; 80053; 81001; 87493; 76775; 74177; A9270; J3370; J7030; S0119

== ENCOUNTER → 2017-12-16 | Outpatient (CLI) | payer MEDICARE ==
[2017-12-16 13:54] LABS: ABSOLUTE BASOPHILS # (AUTO) 0.1 10^3/uL (0.0-0.2); ABSOLUTE EOSINOPHILS # (AUTO) 0.1 10^3/uL (0.0-0.6); ABSOLUTE MONOCYTES (AUTO) 0.7 10^3/uL (0.1-1.4); ABSOLUTE NEUT (AUTO) 7.8 10^3/uL (1.7-8.2); BASOPHILS % (AUTO) 0.7 % (0-2); EOSINOPHILS % (AUTO) 1.1 % (0-6); HEMATOCRIT 49.7 % (37.9-51.0); HEMOGLOBIN 16.7 g/dL (13.5-17.0); LYMPHOCYTES % (AUTO) 10.5 % (13-45); MEAN CORPUSCULAR HEMOGLOBIN 29.9 pg (27.0-33.4); MEAN CORPUSCULAR HGB CONC 33.6 g/dL (32.0-36.0); MEAN CORPUSCULAR VOLUME 89 fl (80-97); MONOCYTES % (AUTO) 6.9 % (3-13); PLATELET COUNT 360 10^3/uL (150-450); RED BLOOD COUNT 5.58 10^6/uL (4.35-5.55); RED CELL DISTRIBUTION WIDTH 15.2 % (11.5-14.0); SEGMENTED NEUTROPHILS % (AUTO) 80.8 % (42-78); TOTAL CELLS COUNTED % (AUTO) 100 %; WHITE BLOOD COUNT 9.6 10^3/uL (4.0-10.5)
[2017-12-16 14:13] LABS: ALANINE AMINOTRANSFERASE 22 U/L (21-72); ALBUMIN 4.5 g/dL (3.5-5.0); ALKALINE PHOSPHATASE 75 U/L (38-126); ANION GAP 13 (5-19); ASPARTATE AMINO TRANSFERASE 14 U/L (17-59); BILIRUBIN,DIRECT 0.3 mg/dL (0.0-0.4); BILIRUBIN,TOTAL 0.5 mg/dL (0.2-1.3); BLOOD UREA NITROGEN 13 mg/dL (7-20); CALCIUM 10.5 mg/dL (8.4-10.2); CARBON DIOXIDE 27 mmol/L (22-30); CHLORIDE 106 mmol/L (98-107); GLUCOSE 68 mg/dL (75-110); POTASSIUM 4.7 mmol/L (3.6-5.0); SODIUM 146.3 mmol/L (137-145); TOTAL PROTEIN 7.7 g/dL (6.3-8.2)
[2017-12-16 14:29] LABS: FREE T3 3.49 pg/mL (2.77-5.27); FREE T4 (FREE THYROXINE) 1.24 ng/dL (0.78-2.19)
[2017-12-16 14:43] LABS: THYROID STIMULATING HORMONE 0.96 uIU/mL (0.47-4.68)
[2017-12-17 06:39] LABS: FOLLICLE STIMULATING HORMONE 4.4 mIU/mL (1.5-12.4); LUTEINIZING HORMONE 4.4 mIU/mL (1.7-8.6)
[2017-12-17 11:55] LABS: PROLACTIN 19.9 ng/mL (4.0-15.2)
== END ==
LOC: OD 12:25
PROVIDERS: ATTEND Internal Medicine
DX: E29.1 Testicular hypofunction (principal); R53.83 Other fatigue; D64.9 Anemia, unspecified
CPT/HCPCS: 36415; 80053; 83001; 83002; 84146; 84403; 84439; 84443; 84481; 85025

== ENCOUNTER → 2018-12-01 | Outpatient (CLI) | payer MEDICARE ==
[2018-12-01 12:27] LABS: ABSOLUTE BASOPHILS # (AUTO) 0.1 10^3/uL (0.0-0.2); ABSOLUTE EOSINOPHILS # (AUTO) 0.2 10^3/uL (0.0-0.6); ABSOLUTE LYMPHOCYTES (AUTO) 1.5 10^3/uL (0.5-4.7); ABSOLUTE MONOCYTES (AUTO) 0.7 10^3/uL (0.1-1.4); ABSOLUTE NEUT (AUTO) 4.8 10^3/uL (1.7-8.2); ABSOLUTE RETICS # 0.086 10^6/uL (0.028-0.122); BASOPHILS % (AUTO) 1.3 % (0-2); HEMATOCRIT 38.5 % (37.9-51.0); HEMOGLOBIN 12.2 g/dL (13.5-17.0); MEAN CORPUSCULAR HEMOGLOBIN 22.7 pg (27.0-33.4); MEAN CORPUSCULAR HGB CONC 31.6 g/dL (32.0-36.0); MEAN CORPUSCULAR VOLUME 72 fl (80-97); MONOCYTES % (AUTO) 9.9 % (3-13); PLATELET COUNT 481 10^3/uL (150-450); RED BLOOD COUNT 5.37 10^6/uL (4.35-5.55); RED CELL DISTRIBUTION WIDTH 16.5 % (11.5-14.0); SEGMENTED NEUTROPHILS % (AUTO) 65.8 % (42-78); TOTAL CELLS COUNTED % (AUTO) 100 %; WHITE BLOOD COUNT 7.3 10^3/uL (4.0-10.5)
[2018-12-01 12:37] LABS: ALANINE AMINOTRANSFERASE 16 U/L (21-72); ALBUMIN 4.2 g/dL (3.5-5.0); ALKALINE PHOSPHATASE 83 U/L (38-126); ANION GAP 10 (5-19); ASPARTATE AMINO TRANSFERASE 14 U/L (17-59); BILIRUBIN,DIRECT 0.3 mg/dL (0.0-0.4); BILIRUBIN,TOTAL 0.3 mg/dL (0.2-1.3); BLOOD UREA NITROGEN 15 mg/dL (7-20); CALCIUM 9.8 mg/dL (8.4-10.2); CARBON DIOXIDE 26 mmol/L (22-30); CHLORIDE 104 mmol/L (98-107); CHOLESTEROL 238.93 mg/dL (0-200); GLUCOSE 72 mg/dL (75-110); IRON(TIBC) 28.4 ug/dL (49-181); POTASSIUM 4.4 mmol/L (3.6-5.0); SODIUM 140.1 mmol/L (137-145); TOTAL PROTEIN 7.5 g/dL (6.3-8.2); TRIGLYCERIDES 365 mg/dL (<150)
[2018-12-01 12:48] LABS: DIRECT LDL 161 mg/dL (<100)
[2018-12-01 13:15] LABS: FERRITIN 4.39 ng/mL (17.9-464.0)
== END ==
LOC: OD 11:05
PROVIDERS: ATTEND Internal Medicine
DX: K58.0 Irritable bowel syndrome with diarrhea (principal); R53.83 Other fatigue; K21.9 Gastro-esophageal reflux disease without esophagitis; M45.9 Ankylosing spondylitis of unspecified sites in spine; D64.9 Anemia, unspecified; Z79.899 Other long term (current) drug therapy
CPT/HCPCS: 36415; 80053; 80061; 82607; 82728; 82746; 83540; 83550; 84443; 85025; 85045

== ENCOUNTER → 2019-02-23 | Outpatient (CLI) | payer MEDICARE, OTHER ==
--- NOTE | 2019-02-23 14:41 | RADIOLOGY REPORT (SQ) ---
EXAM DESCRIPTION: CT ABD/PELVIS WITH IV ORAL COMPLETED DATE/TIME: 02/23/2019 1:38 pm REASON FOR STUDY: ABD PAIN, EPIGASTRIC (R10.13), BLOATING (R14.0) R14.0 ABDOMINAL DISTENSION (GASEO US) R10.13 EPIGASTRIC PAIN COMPARISON: CT abdomen pelvis 11/23/2017, 07/03/2017 TECHNIQUE: CT scan of the abdomen and pelvis performed using helical scanning technique with dynamic intravenous contrast injection. Patient drank oral contrast. Images reviewed with lung, soft tissue , and bone windows. Reconstructed coronal and sagittal MPR images reviewed. Delayed images for evalua tion of the urinary system also acquired. All images stored on PACS. All CT scanners at this facility use dose modulation, iterative reconstruction, and/or weight based d osing when appropriate to reduce radiation dose to as low as reasonably achievable (ALARA). [facility]: Dose Right [facility]: CareDose [facility]: Dose Right [facility]: Teradose 4D [facility]: [employer] CONTRAST TYPE AND DOSE: contrast/concentration: Isovue mg/ml; Total Contrast Delivered: 75.0 ml; To jean marie Saline Delivered: 67.0 ml RENAL FUNCTION: Creatinine 1.0 RADIATION DOSE: CT Rad equipment meets quality standard of care and radiation dose reduction techniq ues were employed. CTDIvol: 6.0 - 6.2 mGy. DLP: 642 mGy-cm.. LIMITATIONS: Streak artifact through the pelvis from bilateral total hip replacements FINDINGS: LOWER CHEST: No significant findings. No nodules or infiltrates. LIVER: Normal size. No masses. No dilated ducts. SPLEEN: Normal size. No focal lesions. PANCREAS: No masses. No significant calcifications. No adjacent inflammation or peripancreatic fluid collections. Pancreatic duct not dilated. GALLBLADDER: No identified stones by CT criteria. No inflammatory changes to suggest cholecystitis. ADRENAL GLANDS: No significant masses or asymmetry. RIGHT KIDNEY AND URETER: No solid masses. 1 cm right lower pole renal cortical cyst. Multiple tiny less than 5 mm intrarenal nonobstructive stones. No right ureteral calculi. No hydronephrosis or h ydroureter. LEFT KIDNEY AND URETER: No solid masses. Subcentimeter cysts in the mid and lower pole left kidney. Multiple tiny intrarenal nonobstructive less than 5 mm stones. No left ureteral calculi. No hydro nephrosis or hydroureter. AORTA AND VESSELS: No aneurysm. No dissection. Renal arteries, SMA, celiac without stenosis. RETROPERITONEUM: No retroperitoneal adenopathy, hemorrhage or masses. BOWEL AND PERITONEAL CAVITY: Patient drank oral contrast. No CT evidence of bowel obstruction. No f ree intraperitoneal air or fluid. Patient is post total colectomy with J-pouch. APPENDIX: Surgically absent PELVIS: Limited visualization, streak artifact from bilateral total hip replacements ABDOMINAL WALL: No masses. No hernias. BONES: Bilateral hip replacements. Diffuse ankylosis throughout the spine from spondyloarthropathy OTHER: No other significant finding. IMPRESSION: No CT evidence of obstructive urinary stones Post total colectomy. Oral contrast is seen throughout the gastrointestinal tract without evidence o f bowel obstruction. TECHNICAL DOCUMENTATION: JOB ID: [id number] Quality ID # [id number]: Final reports with documentation of one or more dose reduction techniques (e.g., Au tomated exposure control, adjustment of the mA and/or kV according to patient size, use of iterative reconstruction technique) 2010 [employer]- All Rights Reserved Reading location - IP/workstation name: [email or web address]
== END ==
LOC: RAD 12:48
PROVIDERS: ATTEND Internal Medicine Gastroenterology
DX: N20.0 Calculus of kidney (principal); N28.1 Cyst of kidney, acquired; R10.13 Epigastric pain; R14.0 Abdominal distension (gaseous); Z96.643 Presence of artificial hip joint, bilateral
CPT/HCPCS: 74177; 82565

== ENCOUNTER 2019-05-01 13:15 | Observation (INO) | payer MEDICARE ==
[2019-05-01] MEDS ORDERED: IBUPROFEN 800 MG TABLET PO ONE (16:16)
--- NOTE | 2019-05-01 16:19 | ER Document Report ---
ED Medical Screen (RME) - General Chief Complaint: Neck and Upper Back Pain Stated Complaint: NECK PAIN Time Seen by Provider: 05/01/19 16:07 Primary Care Provider: AJAY JON MD [Primary Care Provider] - Follow up as needed Mode of Arrival: Ambulatory Information source: Patient Notes: This 48-year-old male presents emergency department with complaints of neck pain numbness and on his neck and up on his head. Also complains of numbness going down both arms. Reports he feels faint. He reports he is almost blacking out. Patient does have a history of chronic pain radiculopathy. Also has a history of ulcerated colitis. Patient denies trauma. Patient is seen at pain management takes hydrocodone for the pain. Denies shortness of breath. Denies chest pain. I have greeted and performed a rapid initial assessment of this patient. A comprehensive ED assessment and evaluation of the patient, analysis of test results and completion of the medical decision making process will be conducted by additional ED providers. Dictation of this chart was performed using voice recognition software; therefore, there may be some unintended grammatical errors. TRAVEL OUTSIDE OF THE [place] IN LAST 30 DAYS: No - Related Data Allergies/Adverse Reactions: morphine [Morphine] Allergy (Intermediate, Verified 05/01/19 13:16) Generalized rash Past Medical History - Past Medical History Cardiac Medical History: Denies: Hx Heart Attack, Hx Hypertension Pulmonary Medical History: Denies: Hx Asthma, Hx Tuberculosis Neurological Medical History: Denies: Hx Cerebrovascular Accident, Hx Seizures Renal/ Medical History: Reports: Hx Kidney Stones. Denies: Hx Peritoneal Dialysis GI Medical History: Reports: Hx Ulcerative Colitis - S/P TOTAL COLECTOMY. Denies: Hx Hepatitis, Hx Hiatal Hernia, Hx Ulcer Musculoskeltal Medical History: Reports Hx Arthritis Infectious Medical History: Denies: Hx Hepatitis Past Surgical History: Reports: Hx Abdominal Surgery - part of intestine removed, Hx Bowel Surgery - TOTAL COLECTOMY, Hx Colostomy, Hx Orthopedic Surgery - bilateral hip replacement. Denies: Hx Open Heart Surgery, Hx Pacemaker - Immunizations Hx Diphtheria, Pertussis, Tetanus Vaccination: Yes Physical Exam - Vital signs Vitals: Temp Pulse Resp BP Pulse Ox 97.6 F 93 16 97/52 L 98 05/01/19 13:19 05/01/19 13:19 05/01/19 13:19 05/01/19 13:19 05/01/19 13:19 Course - Vital Signs Vital signs: Temp Pulse Resp BP Pulse Ox 97.6 F 93 16 93/56 L 98 05/01/19 13:19 05/01/19 13:19 05/01/19 13:19 05/01/19 13:21 05/01/19 13:19 Doctor's Discharge - Discharge Referrals: AJAY JON MD [Primary Care Provider] - Follow up as needed
--- NOTE | 2019-05-01 16:50 | ER Document Report ---
ED General - General Chief Complaint: Neck and Upper Back Pain Stated Complaint: NECK PAIN Time Seen by Provider: 05/01/19 16:07 Primary Care Provider: AJAY JON MD [Primary Care Provider] - Follow up as needed Mode of Arrival: Ambulatory Notes: 48 year old with h/o Ankolosing Spondylitis and UC is here with dizziness and near syncope recently. His neck pain is worse and he has been having radicular pain which is not new. No fever or chills. No syncope but presyncope. He denies bloody or black or tarry stool. TRAVEL OUTSIDE OF THE [place] IN LAST 30 DAYS: No - HPI Patient complains to provider of: dizziness/ neck pain Onset: Just prior to arrival Onset/Duration: Gradual Severity: Severe Pain Level: 4 Associated symptoms: None Exacerbated by: Movement Relieved by: Denies - Related Data Allergies/Adverse Reactions: morphine [Morphine] Allergy (Intermediate, Verified 05/01/19 13:16) Generalized rash Past Medical History - General Information source: Patient - Social History Smoking Status: Current Every Day Smoker Family History: Reviewed & Not Pertinent - Past Medical History Cardiac Medical History: Denies: Hx Heart Attack, Hx Hypertension Pulmonary Medical History: Denies: Hx Asthma, Hx Tuberculosis Neurological Medical History: Denies: Hx Cerebrovascular Accident, Hx Seizures Renal/ Medical History: Reports: Hx Kidney Stones. Denies: Hx Peritoneal Dialysis GI Medical History: Reports: Hx Ulcerative Colitis - S/P TOTAL COLECTOMY. Denies: Hx Hepatitis, Hx Hiatal Hernia, Hx Ulcer Musculoskeletal Medical History: Reports Hx Arthritis Infectious Medical History: Denies: Hx Hepatitis Past Surgical History: Reports: Hx Abdominal Surgery - part of intestine removed, Hx Bowel Surgery - TOTAL COLECTOMY, Hx Colostomy, Hx Orthopedic Surgery - bilateral hip replacement. Denies: Hx Open Heart Surgery, Hx Pacemaker - Immunizations Hx Diphtheria, Pertussis, Tetanus Vaccination: Yes Review of Systems - Review of Systems Constitutional: No symptoms reported EENT: No symptoms reported Cardiovascular: No symptoms reported Respiratory: No symptoms reported Gastrointestinal: No symptoms reported Genitourinary: No symptoms reported Male Genitourinary: No symptoms reported Musculoskeletal: No symptoms reported Skin: No symptoms reported Hematologic/Lymphatic: No symptoms reported Neurological/Psychological: No symptoms reported Physical Exam - Vital signs Vitals: Temp Pulse Resp BP Pulse Ox 97.6 F 93 16 97/52 L 98 05/01/19 13:19 05/01/19 13:19 05/01/19 13:19 05/01/19 13:19 05/01/19 13:19 Interpretation: Normal - General General appearance: Appears well, Alert - HEENT Head: Normocephalic, Atraumatic Eyes: Pale conjunctiva Pupils: PERRL - Respiratory Respiratory status: No respiratory distress Chest status: Nontender Breath sounds: Normal Chest palpation: Normal - Cardiovascular Rhythm: Regular Heart sounds: Normal auscultation Murmur: No - Abdominal Inspection: Normal Distension: No distension Bowel sounds: Normal Tenderness: Nontender Organomegaly: No organomegaly - Back Back: Normal, Nontender - Extremities General upper extremity: Normal inspection, Nontender, Normal color, Normal ROM, Normal temperature General lower extremity: Normal inspection, Nontender, Normal color, Normal ROM, Normal temperature, Normal weight bearing. No: Feroz's sign - Neurological Neuro grossly intact: Yes Cognition: Normal Orientation: AAOx4 Aayush Coma Scale Eye Opening: Spontaneous Kincaid Coma Scale Verbal: Oriented Aayush Coma Scale Motor: Obeys Commands Aayush Coma Scale Total: 15 Speech: Normal Motor strength normal: LUE, RUE, LLE, RLE Sensory: Normal - Psychological Associated symptoms: Normal affect, Normal mood - Skin Skin Temperature: Warm Skin Moisture: Dry Skin Color: Normal Course - Vital Signs Vital signs: Temp Pulse Resp BP Pulse Ox 97.6 F 93 16 93/56 L 98 05/01/19 13:19 05/01/19 13:19 05/01/19 13:19 05/01/19 13:21 05/01/19 13:19 - Laboratory Result Diagrams: 05/01/19 16:56 05/01/19 16:56 Laboratory results interpreted by me: 05/01/19 05/01/19 16:56 16:56 Hgb 7.2 L Hct 25.7 L MCV 58 L MCH 16.1 L MCHC 28.0 L RDW 20.8 H Plt Count 486 H AST 12 L - EKG Interpretation by Me EKG shows normal: Sinus rhythm Rate: Normal Rhythm: NSR - NSR NL [place] [address] elevation or depression my interpretation. Critical Care Note - Critical Care Note Total time excluding time spent on procedures (mins): 30 Discharge - Discharge Clinical Impression: Symptomatic anemia Condition: Fair Disposition: ADMITTED INPATIENT Admitting Provider: Kaylynn Unit Admitted: Telemetry Referrals: AJAY JON MD [Primary Care Provider] - Follow up as needed
--- NOTE | 2019-05-01 16:54 | RADIOLOGY REPORT (SQ) ---
EXAM DESCRIPTION: CT CERVICAL SPINE WITHOUT COMPLETED DATE/TIME: 05/01/2019 4:36 pm REASON FOR STUDY: neck pain COMPARISON: None. TECHNIQUE: Axial images acquired through the cervical spine without intravenous contrast. Images re viewed with lung, soft tissue and bone windows. Reconstructed coronal and sagittal MPR images review ed. Images stored on PACS. All CT scanners at this facility use dose modulation, iterative reconstruction, and/or weight based d osing when appropriate to reduce radiation dose to as low as reasonably achievable (ALARA). [facility]: Dose Right [facility]: CareDose [facility]: Dose Right [facility]: Teradose 4D [facility]: SqueezeCMM RADIATION DOSE: CT Rad equipment meets quality standard of care and radiation dose reduction techniq ues were employed. CTDIvol: 18.8 mGy. DLP: 399 mGy-cm. mGy. LIMITATIONS: None. FINDINGS: ALIGNMENT: Anatomic. MINERALIZATION: Normal. VERTEBRAL BODIES: No fractures or dislocation. DISCS: Disc heights are narrowed. There is fusion of the anterior longitudinal ligament. There is p osterior fusion as well. Findings may represent DISH. FACETS, LATERAL MASSES, POSTERIOR ELEMENTS: Facet arthropathy. No fractures. No dislocation. No ac andreas findings. HARDWARE: None in the spine. VISUALIZED RIBS: No fractures. LUNG APICES AND SOFT TISSUES: No significant or acute findings. OTHER: No other significant finding. IMPRESSION: Probable diffuse idiopathic skeletal hyperostosis. Less likely ankylosing spondylitis. No high-grade central stenosis. No focal disc herniations. TECHNICAL DOCUMENTATION: JOB ID: [id number] Quality ID # [id number]: Final reports with documentation of one or more dose reduction techniques (e.g., Au tomated exposure control, adjustment of the mA and/or kV according to patient size, use of iterative reconstruction technique) 2010 [employer]- All Rights Reserved Reading location - IP/workstation name: [email or web address]
[2019-05-01 17:21] LABS: ABSOLUTE BASOPHILS # (AUTO) 0.1 10^3/uL (0.0-0.2); ABSOLUTE MONOCYTES (AUTO) 0.3 10^3/uL (0.1-1.4); ABSOLUTE NEUT (AUTO) 3.6 10^3/uL (1.7-8.2); BASOPHILS % (AUTO) 1.5 % (0-2); HEMATOCRIT 25.7 % (37.9-51.0); LYMPHOCYTES % (AUTO) 19.3 % (13-45); MEAN CORPUSCULAR HEMOGLOBIN 16.1 pg (27.0-33.4); MONOCYTES % (AUTO) 6.8 % (3-13); PLATELET COUNT 486 10^3/uL (150-450); RED BLOOD COUNT 4.46 10^6/uL (4.35-5.55); RED CELL DISTRIBUTION WIDTH 20.8 % (11.5-14.0); SEGMENTED NEUTROPHILS % (AUTO) 71.4 % (42-78); TOTAL CELLS COUNTED % (AUTO) 100 %; WHITE BLOOD COUNT 5.1 10^3/uL (4.0-10.5)
[2019-05-01 17:26] LABS: ALBUMIN 4.1 g/dL (3.5-5.0); ALKALINE PHOSPHATASE 82 U/L (38-126); ANION GAP 10 (5-19); ASPARTATE AMINO TRANSFERASE 12 U/L (17-59); BILIRUBIN,DIRECT 0.1 mg/dL (0.0-0.4); BILIRUBIN,TOTAL 0.4 mg/dL (0.2-1.3); BLOOD UREA NITROGEN 13 mg/dL (7-20); CALCIUM 9.2 mg/dL (8.4-10.2); CARBON DIOXIDE 23 mmol/L (22-30); CHLORIDE 105 mmol/L (98-107); GLUCOSE 91 mg/dL (75-110); POTASSIUM 3.8 mmol/L (3.6-5.0)
[2019-05-01 17:28] LABS: HEMOGLOBIN 7.2 g/dL (13.5-17.0)
[2019-05-01 17:46] LABS: ANISOCYTOSIS 2+; HYPOCHROMASIA 2+; MEAN CORPUSCULAR VOLUME 58 fl (80-97); OVALOCYTES 1+; PLATELET CLUMPS PRESENT; PLATELET COMMENT INCREASED; PLATELET GIANT PRESENT; PLATELET LARGE PRESENT; POLYCHROMASIA SLIGHT
[2019-05-01] MEDS ORDERED: NORMAL SALINE 250 ML IV PRN (17:52)
[2019-05-01] MEDS ORDERED: NORMAL SALINE 1000 ML 1,000 ML IV PRN (18:33)
[2019-05-01] MEDS ORDERED: IPRATROPIUM/ALBUTEROL 0.5-2.5 MG/3 ML AMPUL NEB PRN (18:33)
[2019-05-01] MEDS ORDERED: MAG HYDROX/AL HYDROX/SIMETH SUSP 30 ML UDCUP PO PRN (18:33)
[2019-05-01] MEDS ORDERED: ONDANSETRON HCL INJ/PF 4 MG/2 ML SDV IV PRN (18:33)
[2019-05-01] MEDS ORDERED: MAGNESIUM HYDROXIDE SUSP 30 ML UDCUP PO PRN (18:33)
[2019-05-01] MEDS ORDERED: ACETAMINOPHEN 325 MG TABLET PO PRN (18:33)
[2019-05-01] MEDS ORDERED: CYCLOBENZAPRINE HCL 10 MG TABLET PO PRN (18:37)
--- NOTE | 2019-05-01 18:55 | PDOC H&P ---
History of Present Illness Admission Date/PCP: AJAY SILVEIRA MD Patient complains of: Near syncope History of Present Illness: SHASHI BRAND is a 48 year old male with a past medical history significant for ulcerative colitis s/p colectomy and now with J-pouch, ankylosing spondylitis, opiate dependent chronic pain, and tobacco dependence who presented to the em ergency department today with a complaint of near syncope. Evaluation in the emergency department revealed hypotension (97/52), though without tachycardia and anemia with a hemoglobin of 7.2, hematocrit 25.7. EKG revealed sinus rhythm. Cervical spine CT showed diffuse idiopathic skeletal hyperostosis He is ordered 2 units PRBC and is referred to the hospitalist service for admission and management of the above-stated complaints and findings. Past Medical History Cardiac Medical History: Reports: None Pulmonary Medical History: Reports: None EENT Medical History: Reports: None Neurological Medical History: Reports: None Endocrine Medical History: Reports: None Renal/ Medical History: Reports: None GI Medical History: Reports: Ulcerative Colitis - S/P TOTAL COLECTOMY Denies: Hepatitis, Hiatal Hernia Musculoskeltal Medical History: Reports: Arthritis Skin Medical History: Reports: None Psychiatric Medical History: Reports: Tobacco Dependency Traumatic Medical History: Reports: None Hematology: Reports: Anemia Denies: Sickle Cell Disease Infectious Medical History: Reports: None Past Surgical History Past Surgical History: Reports: Colostomy - Now with J-pouch, Orthopedic Surgery - bilateral hip replacement Denies: Pacemaker Social History Information Source: Patient Lives with: Family Smoking Status: Current Every Day Smoker Cigarettes Packs Per Day: 0.5 Frequency of Alcohol Use: None Hx Recreational Drug Use: No Drugs: None Hx Prescription Drug Abuse: No - Advance Directive Resuscitation Status: Full Code Family History Family History: Reviewed & Not Pertinent Parental Family History Reviewed: Yes Children Family History Reviewed: Yes Sibling(s) Family History Reviewed.: Yes Medication/Allergy Home Medications: Gabapentin [Neurontin 300 Mg Capsule] 300 mg PO BID 04/10/12 Ibuprofen [Motrin 800 Mg Tablet] 800 mg PO TIDP PRN 04/10/12 Mirtazapine [Remeron] 30 mg PO DAILY 04/10/12 Dicyclomine HCl 1 - 2 tab PO Q6HP PRN 11/23/17 Mesalamine [Rowasa 1000 mg Supp.rect] 1 tab SC QPM 11/23/17 Metronidazole [Flagyl 500 mg Tablet] 500 mg PO TID #30 tablet 11/23/17 Omeprazole 20 mg PO DAILY 11/23/17 Ondansetron [Zofran Odt 4 mg Tablet] 1 - 2 tab PO Q4HP PRN #10 tab.rapdis 11/23/17 Oxycodone HCl/Acetaminophen [Oxycodone-Acetaminophen 5-325] 1 tab PO Q6HP PRN 11/23/17 Vancomycin HCl 125 mg PO ASDIR PRN #40 capsule 11/23/17 Allergies/Adverse Reactions: morphine [Morphine] Allergy (Intermediate, Verified 05/01/19 13:16) Generalized rash Review of Systems Constitutional: PRESENT: fatigue, weakness. ABSENT: chills, fever(s), headache(s), weight gain, weight loss Eyes: ABSENT: visual disturbances Ears: ABSENT: hearing changes Cardiovascular: ABSENT: chest pain, dyspnea on exertion, edema, orthropnea, palpitations Respiratory: ABSENT: cough, hemoptysis Gastrointestinal: ABSENT: abdominal pain, constipation, diarrhea, hematemesis, hematochezia, nausea, vomiting Genitourinary: ABSENT: dysuria, hematuria Musculoskeletal: PRESENT: back pain. ABSENT: joint swelling Integumentary: ABSENT: rash, wounds Neurological: PRESENT: other - Near syncope. ABSENT: abnormal gait, abnormal speech, confusion, dizziness, focal weakness, syncope Psychiatric: ABSENT: anxiety, depression, homidical ideation, suicidal ideation Endocrine: ABSENT: cold intolerance, heat intolerance, polydipsia, polyuria Hematologic/Lymphatic: ABSENT: easy bleeding, easy bruising Physical Exam Vital Signs: Temp Pulse Resp BP Pulse Ox 97.6 F 93 16 93/56 L 98 05/01/19 13:19 05/01/19 13:19 05/01/19 13:19 05/01/19 13:21 05/01/19 13:19 Intake & Output 04/30/19 05/01/19 05/02/19 06:59 06:59 06:59 Weight 64 kg General appearance: PRESENT: no acute distress, thin, well-developed Head exam: PRESENT: atraumatic, normocephalic Eye exam: PRESENT: conjunctiva pale, EOMI, PERRLA. ABSENT: scleral icterus Ear exam: PRESENT: normal external ear exam Mouth exam: PRESENT: moist, tongue midline Teeth exam: PRESENT: edentulous Neck exam: ABSENT: carotid bruit, JVD, lymphadenopathy, thyromegaly Respiratory exam: PRESENT: clear to auscultation vandana, symmetrical, unlabored. ABSENT: rales, rhonchi, wheezes Cardiovascular exam: PRESENT: RRR, +S1, +S2. ABSENT: diastolic murmur, rubs, systolic murmur Pulses: PRESENT: normal dorsalis pedis pul Vascular exam: PRESENT: normal capillary refill GI/Abdominal exam: PRESENT: normal bowel sounds, soft. ABSENT: distended, guarding, mass, organolmegaly, rebound, tenderness Rectal exam: PRESENT: deferred Extremities exam: PRESENT: full ROM. ABSENT: calf tenderness, clubbing, pedal edema Neurological exam: PRESENT: alert, awake, oriented to person, oriented to place, oriented to time, oriented to situation, CN II-XII grossly intact. ABSENT: motor sensory deficit Psychiatric exam: PRESENT: appropriate affect, normal mood. ABSENT: homicidal ideation, suicidal ideation Skin exam: PRESENT: dry, intact, pallor, warm. ABSENT: cyanosis, rash Results Laboratory Results: 05/01/19 16:56 05/01/19 16:56 05/01/19 05/01/19 16:56 16:56 WBC 5.1 RBC 4.46 Hgb 7.2 L Hct 25.7 L MCV 58 L MCH 16.1 L MCHC 28.0 L RDW 20.8 H Plt Count 486 H Seg Neutrophils % 71.4 Sodium 137.7 Potassium 3.8 Chloride 105 Carbon Dioxide 23 Anion Gap 10 BUN 13 Creatinine 1.24 Est GFR ( Amer) > 60 Glucose 91 Calcium 9.2 Total Bilirubin 0.4 AST 12 L Alkaline Phosphatase 82 Total Protein 7.0 Albumin 4.1 Impressions: Cervical Spine CT 05/01/19 16:15 IMPRESSION: Probable diffuse idiopathic skeletal hyperostosis. Less likely ankylosing spondylitis. No high-grade central stenosis. No focal disc herniations. Assessment and Plan - Diagnosis (1) Symptomatic anemia Is this a current diagnosis for this admission?: Yes Plan: Likely secondary to occult GI bleed. History of the same. Baseline hemoglobin 12; presents with a hemoglobin of 7.2 today. Patient denies grossly bloody stools. He further denies melena. Patient does have symptomatic anemia with presyncopal symptoms, however, is not noted to be tachycardic. Occult stool pending. Urinalysis pending. Patient is admitted to the medical floor and continuous cardiac telemetry. He is ordered maintenance IV fluids. We will provide 2 units PRBC. Protonix twice daily. Discussed with patient's established caterpillar operator, Dr. Silveira, this evening. If the patient is hemodynamically stable following transfusion, may be discharged to home with outpatient follow-up. Dr. Silveira advises to make follow-up appointment prior to discharge. Follow up CBC in a.m. (2) Hypotension Is this a current diagnosis for this admission?: Yes Plan: Secondary to anemia. Orthostatic blood pressures each shift. Fall precautions. (3) Ulcerative colitis Is this a current diagnosis for this admission?: Yes Plan: Stable and without flare/exacerbation at this time. We will resume home medication regiment once reconciled. Unfortunately, patient does not know his home medications; family member will bring them in this evening for review. (4) Tobacco dependence Is this a current diagnosis for this admission?: Yes Plan: Smoking cessation encouraged, nicotine replacement therapies provided. - Time Time Spent with patient: 35 or more minutes Medications reviewed and adjusted accordingly: Yes Anticipated discharge: Home Within: within 24 hours
[2019-05-01 19:41] LABS: ABSOLUTE RETICS # 0.076 10^6/uL (0.028-0.122)
[2019-05-01 20:27] LABS: FERRITIN 2.18 ng/mL (17.9-464.0)
--- NOTE | 2019-05-01 20:53 | EKG REPORT ---
SEVERITY:- OTHERWISE NORMAL ECG - SINUS RHYTHM BORDERLINE RIGHT AXIS DEVIATION : Confirmed by: Gloria Cee MD 01-May-2019 20:52:15
[2019-05-01 20:58] LABS: FOLATE 3.45 ng/mL (>2.76)
[2019-05-01 21:02] LABS: IRON(TIBC) < 10.1 ug/dL (49-181)
[2019-05-01 22:04] LABS: APPEARANCE,URINE CLEAR; BILIRUBIN,URINE NEGATIVE (NEGATIVE); COLOR,URINE STRAW; GLUCOSE, URINE NEGATIVE (NEGATIVE); KETONES,URINE NEGATIVE (NEGATIVE); LEUKOCYTE ESTERASE,URINE NEGATIVE (NEGATIVE); NITRITE,URINE NEGATIVE (NEGATIVE); PROTEIN,URINE NEGATIVE (NEGATIVE); URINE SPECIFIC GRAVITY 1.009; UROBILINOGEN,URINE NEGATIVE mg/dL (<2.0)
[2019-05-01] MEDS: HYDROCODONE/ACETAMINOPHEN 5-325 MG TABLET PO PRN (22:32)
[2019-05-01] MEDS: GABAPENTIN 300 MG CAPSULE PO SCH (23:57)
[2019-05-02 01:13] LABS: HEMATOCRIT 28.2 % (37.9-51.0); HEMOGLOBIN 8.3 g/dL (13.5-17.0); MEAN CORPUSCULAR HEMOGLOBIN 18.1 pg (27.0-33.4); MEAN CORPUSCULAR HGB CONC 29.5 g/dL (32.0-36.0); MEAN CORPUSCULAR VOLUME 61 fl (80-97); PLATELET COUNT 432 10^3/uL (150-450); RED CELL DISTRIBUTION WIDTH 24.9 % (11.5-14.0); WHITE BLOOD COUNT 5.3 10^3/uL (4.0-10.5)
[2019-05-02] MEDS ORDERED: PANTOPRAZOLE SODIUM 40 MG TABLET.DR PO SCH (06:00)
[2019-05-02 06:42] LABS: HEMATOCRIT 26.7 % (37.9-51.0); MEAN CORPUSCULAR HGB CONC 29.3 g/dL (32.0-36.0); MEAN CORPUSCULAR VOLUME 62 fl (80-97); PLATELET COUNT 421 10^3/uL (150-450); RED BLOOD COUNT 4.35 10^6/uL (4.35-5.55); RED CELL DISTRIBUTION WIDTH 24.9 % (11.5-14.0); WHITE BLOOD COUNT 4.3 10^3/uL (4.0-10.5)
[2019-05-02] MEDS: GABAPENTIN 300 MG CAPSULE PO SCH ×2 (06:50→11:46)
[2019-05-02] MEDS: HYDROCODONE/ACETAMINOPHEN 5-325 MG TABLET PO PRN (06:54)
[2019-05-02 07:01] LABS: ANION GAP 5 (5-19); BLOOD UREA NITROGEN 15 mg/dL (7-20); CALCIUM 8.7 mg/dL (8.4-10.2); CARBON DIOXIDE 25 mmol/L (22-30); CHLORIDE 109 mmol/L (98-107); GLUCOSE 95 mg/dL (75-110); POTASSIUM 3.8 mmol/L (3.6-5.0)
[2019-05-02 07:16] LABS: HEMOGLOBIN 7.8 g/dL (13.5-17.0)
[2019-05-02] MEDS ORDERED: DOCUSATE SODIUM 100 MG CAPSULE PO SCH (10:00)
[2019-05-02] MEDS ORDERED: NICOTINE 14 MG/24 HR PATCH.TD24 TD SCH (10:00)
[2019-05-02] MEDS ORDERED: FERUMOXYTOL 510 MG in NORMAL SALINE 100 ML IV ONE (12:44)
[2019-05-02] MEDS ORDERED: FERUMOXYTOL (NON-ESRD) 510 MG/NS 100 ML IV ONE ×2 (13:30)
[2019-05-02 13:44] LABS: ABSOLUTE BASOPHILS # (AUTO) 0.1 10^3/uL (0.0-0.2); ABSOLUTE EOSINOPHILS # (AUTO) 0.1 10^3/uL (0.0-0.6); ABSOLUTE LYMPHOCYTES (AUTO) 0.8 10^3/uL (0.5-4.7); ABSOLUTE MONOCYTES (AUTO) 0.4 10^3/uL (0.1-1.4); ABSOLUTE NEUT (AUTO) 2.7 10^3/uL (1.7-8.2); BASOPHILS % (AUTO) 1.7 % (0-2); HEMATOCRIT 29.3 % (37.9-51.0); HEMOGLOBIN 8.9 g/dL (13.5-17.0); LYMPHOCYTES % (AUTO) 20.4 % (13-45); MEAN CORPUSCULAR HEMOGLOBIN 19.7 pg (27.0-33.4); MEAN CORPUSCULAR HGB CONC 30.2 g/dL (32.0-36.0); MEAN CORPUSCULAR VOLUME 65 fl (80-97); MONOCYTES % (AUTO) 9.8 % (3-13); PLATELET COUNT 399 10^3/uL (150-450); RED BLOOD COUNT 4.49 10^6/uL (4.35-5.55); RED CELL DISTRIBUTION WIDTH 28.8 % (11.5-14.0); SEGMENTED NEUTROPHILS % (AUTO) 66.1 % (42-78); TOTAL CELLS COUNTED % (AUTO) 100 %; WHITE BLOOD COUNT 4.1 10^3/uL (4.0-10.5)
[2019-05-02 14:38] LABS: ANISOCYTOSIS 4+; PLATELET COMMENT ADEQUATE
[2019-05-02 14:39] LABS: HYPOCHROMASIA SLIGHT; OVALOCYTES 1+; POIKILOCYTOSIS 1+
[2019-05-02 15:26] VITALS: BP 99/61
--- NOTE | 2019-05-03 19:16 | PDOC DISCHARGE SUMMARY ---
General - Admit/Disc Date/PCP Admission Date/Primary Care Provider: 05/01/19 18:55 AJAY SILVEIRA MD Discharge Date: 05/02/19 - Discharge Diagnosis (1) Symptomatic anemia Is this a current diagnosis for this admission?: Yes Summary: Symptoms have resolved. Hgb improved; 7.2-> 8.9 s/p 2 units PRBC Now ambulatory without dizziness, shortness of breath, palpitations. Orthostatic blood pressures are negative. Has received 2 units PRBC and Feraheme [address] Miramontes's recommendations. Discussed with Dr. Miramontes; patient clear for discharge home with close follow up. Patient has an appointment scheduled for 05/10/19. Occult stool positive; discussed with Dr. Silveira. Cleared for discharge with close outpatient follow up. Patient is instructed to make a follow up appointment with Dr. Silveira for the earliest available appointment. (2) Hypotension Is this a current diagnosis for this admission?: Yes Summary: Resolved. Secondary to anemia. Orthostatic blood pressures are negative. He does continue to have soft BP; patient reports he typically has SBP of 90-100. (3) Ulcerative colitis Is this a current diagnosis for this admission?: Yes Summary: Stable and without exacerbation. Continue home medication regiment. Follow up with Dr. Silveira. (4) Tobacco dependence Is this a current diagnosis for this admission?: Yes Summary: Smoking cessation is encouraged; nicotine replacement therapies were offered. - Additional Information Resuscitation Status: Full Code Discharge Diet: As Tolerated Discharge Activity: Activity As Tolerated, Balance Activity w/Rest Prescriptions: Nicotine [Nicoderm 14 mg/24 Hr Transdermal Patch] 1 each TD DAILY #30 patch.td24 Pantoprazole Sodium [Protonix [address] Tablet] 40 mg PO BID@0600,1700 #60 tablet.dr Multivitamin [Tab-A-Miguel (Multiple Vitamin) Tablet] 1 tab PO DAILY #30 tablet Home Medications: Cyclobenzaprine HCl [Flexeril 5 mg Tablet] 5 mg PO Q12 05/01/19 Gabapentin [Neurontin] 600 mg PO Q6 05/01/19 Hydrocodone/Acetaminophen [Hamill 5-325 mg Tablet] 1 tab PO Q6 05/01/19 Mirtazapine [Remeron 15 mg Tablet] 15 mg PO QHS 05/01/19 Vortioxetine Hydrobromide [Trintellix] 10 mg PO QHS 05/01/19 Acetaminophen [Tylenol 325 mg Tablet] 650 mg PO Q4HP PRN tablet 05/02/19 Multivitamin [Tab-A-Miguel (Multiple Vitamin) Tablet] 1 tab PO DAILY #30 tablet 05/02/19 Nicotine [Nicoderm 14 mg/24 Hr Transdermal Patch] 1 each TD DAILY #30 patch.td24 05/02/19 Pantoprazole Sodium [Protonix [address] Tablet] 40 mg PO BID@0600,1700 #60 tablet.dr 05/02/19 History of Present Illness History of Present Illness: SHASHI BRAND is a 48 year old male with a past medical history significant for ulcerative colitis s/p colectomy and now with J-pouch, ankylosing spondylitis, opiate dependent chronic pain, and tobacco dependence who presented to the emerg ency department today with a complaint of near syncope. Evaluation in the emergency department revealed hypotension (97/52), though without tachycardia and anemia with a hemoglobin of 7.2, hematocrit 25.7. EKG revealed sinus rhythm. Cervical spine CT showed diffuse idiopathic skeletal hyperostosis He is ordered 2 units PRBC and is referred to the hospitalist service for admission and management of the above-stated complaints and findings. Physical Exam Vital Signs: Temp Pulse Resp BP Pulse Ox 97.9 F 85 17 99/61 L 97 05/02/19 15:04 05/02/19 15:04 05/02/19 15:04 05/02/19 15:04 05/02/19 15:04 Intake & Output 05/02/19 05/03/19 05/04/19 06:59 06:59 06:59 Intake Total 540 1890 Balance 540 1890 Weight 66.1 kg General appearance: PRESENT: no acute distress, well-developed, well-nourished Head exam: PRESENT: atraumatic, normocephalic Eye exam: PRESENT: conjunctiva pink, EOMI, PERRLA. ABSENT: scleral icterus Ear exam: PRESENT: normal external ear exam Mouth exam: PRESENT: moist, tongue midline Neck exam: ABSENT: carotid bruit, JVD, lymphadenopathy, thyromegaly Respiratory exam: PRESENT: clear to auscultation vandana, symmetrical, unlabored. ABSENT: rales, rhonchi, wheezes Cardiovascular exam: PRESENT: RRR, +S1, +S2. ABSENT: diastolic murmur, rubs, systolic murmur Pulses: PRESENT: normal dorsalis pedis pul Vascular exam: PRESENT: normal capillary refill GI/Abdominal exam: PRESENT: normal bowel sounds, soft. ABSENT: distended, guarding, mass, organolmegaly, rebound, tenderness Rectal exam: PRESENT: deferred Extremities exam: PRESENT: full ROM. ABSENT: calf tenderness, clubbing, pedal edema Musculoskeletal exam: PRESENT: ambulatory Neurological exam: PRESENT: alert, awake, oriented to person, oriented to place, oriented to time, oriented to situation, CN II-XII grossly intact. ABSENT: motor sensory deficit Psychiatric exam: PRESENT: appropriate affect, normal mood. ABSENT: homicidal ideation, suicidal ideation Skin exam: PRESENT: dry, intact, warm. ABSENT: cyanosis, rash Results Laboratory Results: 05/02/19 13:16 05/02/19 06:25 Impressions: Cervical Spine CT 05/01/19 16:15 IMPRESSION: Probable diffuse idiopathic skeletal hyperostosis. Less likely ankylosing spondylitis. No high-grade central stenosis. No focal disc herniations. Qualifiers - * PATIENT BEING DISCHARGED WITH ANY OF THE FOLLOWING DIAGNOSIS: No Acute Heart Failure - Is this a Heart Failure Patient?: No Plan Discharge Plan: Patient is discharged to home in stable condition. He is instructed to Follow up with his primary care provider within 1 week. Follow up with Dr. Silveira next week. Follow up with Dr. Miramontes as scheduled. Avoid alcohol, tobacco, and caffeine products. Take medications as prescribed. Drink plenty of water. Change positions slowly. Return to the emergency department as needed for concerning symptoms. Time Spent: Greater than 30 Minutes
== END 2019-05-02 16:44 | disposition home or self-care (01) ==
LOC: ER 13:15 → EH 18:55 → 4W 22:03
PROVIDERS: ADMIT Family Medicine; ATTEND Family Medicine
PROC: 30233N1 Transfusion of Nonautologous Red Blood Cells into Peripheral Vein, Percutaneous Approach (ICD-10-PCS; principal; 2019-05-01)
DX: D64.9 Anemia, unspecified (principal); I95.9 Hypotension, unspecified; K51.90 Ulcerative colitis, unspecified, without complications; M45.9 Ankylosing spondylitis of unspecified sites in spine; G89.29 Other chronic pain; F11.20 Opioid dependence, uncomplicated; R55 Syncope and collapse; M48.12 Ankylosing hyperostosis [Forestier], cervical region; F17.210 Nicotine dependence, cigarettes, uncomplicated; Z79.899 Other long term (current) drug therapy; Z90.49 Acquired absence of other specified parts of digestive tract; Z96.643 Presence of artificial hip joint, bilateral; Z93.2 Ileostomy status
CPT/HCPCS: 93005; 99291; 86900; 86901; 36415 ×2; 36430; 86850; 82607; 82728; 82746; 83540; 83550; 85025; 85027; 85045; 80048; 80053; 81001; 86920; 72125; 93010; 94640; G0378 ×3; P9016 ×2; Q0138; A9270 ×6; J7050 ×2; J7030; J3490; J7620

== ENCOUNTER → 2019-05-23 | Outpatient (CLI) | payer MEDICARE ==
--- NOTE | 2019-05-23 13:35 | WOMENS IMAGING REPORT ---
EXAM DESCRIPTION: 3D DX MAMMO BILAT; U/S BREAST UNILAT LIMITED COMPLETED DATE/TIME: 05/23/2019 10:58 am; 05/23/2019 11:17 am REASON FOR STUDY: N63.41 UNSPECIFIED LUMP IN RIGHT BREAST, SUBAREOLAR; N63.41 RIGHT BREAST N63.20 U NSPECIFIED LUMP IN THE LEFT BREAST, UNSPECIFIED QUAD COMPARISON: None. EXAM PARAMETERS: Standard craniocaudal and mediolateral oblique views of each breast recorded using digital acquisition and breast tomosynthesis. Additional right mediolateral. Additional spot CC and MLO right views. Targeted right breast ultrasound with limited comparison of the left breast. Read with the assistance of CAD: .[employer] Safety Analyst Version 9.2 LIMITATIONS: None. FINDINGS: RIGHT BREAST MASSES: No suspicious masses. CALCIFICATIONS: No new or suspicious calcifications. ARCHITECTURAL DISTORTION: None. DEVELOPING DENSITY: None. ASYMMETRY: Non masslike increased density subareolar right breast. OTHER: No other significant findings. LEFT BREAST MASSES: No suspicious masses. CALCIFICATIONS: No new or suspicious calcifications. ARCHITECTURAL DISTORTION: None. DEVELOPING DENSITY: None. ASYMMETRY: None noted. OTHER: No other significant finding. Ultrasound: Images of the right breast show hypoechoic irregularly marginated subareolar tissue with out abnormal Doppler detectable blood flow. Similar changes on the left but much less pronounced. IMPRESSION: Gynecomastia, right greater than left. BREAST DENSITY: a. The breasts are almost entirely fatty. BIRAD: ASSESSMENT: 2 Benign findings. RECOMMENDATION: RECOMMENDED FOLLOW UP: Birads 1 or 2: No breast imaging finding to explain the patie nt's presenting complaint. Further intervention should be based on the degree of clinical suspicion. SPECIFIC INTERVENTION/IMAGING/CONSULTATION RECOMMENDED:No additional intervention/ imaging/consultati on needed at this time. COMMENT: The patient has been notified of the results by letter per MQSA requirements. Additional no tification policies are in place for contacting patient with suspicious or incomplete findings. Quality ID #[id number]: The [employer] recommends an annual screening mammogram for women aged 40 years or over. This facility utilizes a reminder system to ensure that all patients receive reminder letters, and/or direct phone calls for appointments. This includes reminders for routine scr eening mammograms, diagnostic mammograms, or other Breast Imaging Interventions when appropriate. Th is patient will be placed in the appropriate reminder system. TECHNICAL DOCUMENTATION: FINDING NUMBER: (1) ASSESSMENT: (1) JOB ID: [id number] [employer]- All Rights Reserved Reading location - IP/workstation name: [email or web address]
--- NOTE | 2019-05-23 13:35 | WOMENS IMAGING REPORT ---
EXAM DESCRIPTION: 3D DX MAMMO BILAT; U/S BREAST UNILAT LIMITED COMPLETED DATE/TIME: 05/23/2019 10:58 am; 05/23/2019 11:17 am REASON FOR STUDY: N63.41 UNSPECIFIED LUMP IN RIGHT BREAST, SUBAREOLAR; N63.41 RIGHT BREAST N63.20 U NSPECIFIED LUMP IN THE LEFT BREAST, UNSPECIFIED QUAD COMPARISON: None. EXAM PARAMETERS: Standard craniocaudal and mediolateral oblique views of each breast recorded using digital acquisition and breast tomosynthesis. Additional right mediolateral. Additional spot CC and MLO right views. Targeted right breast ultrasound with limited comparison of the left breast. Read with the assistance of CAD: [email or web address] Installer Version 9.2 LIMITATIONS: None. FINDINGS: RIGHT BREAST MASSES: No suspicious masses. CALCIFICATIONS: No new or suspicious calcifications. ARCHITECTURAL DISTORTION: None. DEVELOPING DENSITY: None. ASYMMETRY: Non masslike increased density subareolar right breast. OTHER: No other significant findings. LEFT BREAST MASSES: No suspicious masses. CALCIFICATIONS: No new or suspicious calcifications. ARCHITECTURAL DISTORTION: None. DEVELOPING DENSITY: None. ASYMMETRY: None noted. OTHER: No other significant finding. Ultrasound: Images of the right breast show hypoechoic irregularly marginated subareolar tissue with out abnormal Doppler detectable blood flow. Similar changes on the left but much less pronounced. IMPRESSION: Gynecomastia, right greater than left. BREAST DENSITY: a. The breasts are almost entirely fatty. BIRAD: ASSESSMENT: 2 Benign findings. RECOMMENDATION: RECOMMENDED FOLLOW UP: Birads 1 or 2: No breast imaging finding to explain the patie nt's presenting complaint. Further intervention should be based on the degree of clinical suspicion. SPECIFIC INTERVENTION/IMAGING/CONSULTATION RECOMMENDED:No additional intervention/ imaging/consultati on needed at this time. COMMENT: The patient has been notified of the results by letter per MQSA requirements. Additional no tification policies are in place for contacting patient with suspicious or incomplete findings. Quality ID #225: The [employer] recommends an annual screening mammogram for women aged 40 years or over. This facility utilizes a reminder system to ensure that all patients receive reminder letters, and/or direct phone calls for appointments. This includes reminders for routine scr eening mammograms, diagnostic mammograms, or other Breast Imaging Interventions when appropriate. Th is patient will be placed in the appropriate reminder system. TECHNICAL DOCUMENTATION: FINDING NUMBER: (1) ASSESSMENT: (1) JOB ID: [id number] [employer]- All Rights Reserved Reading location - IP/workstation name: [email or web address]
== END ==
LOC: WI 10:31
PROVIDERS: ATTEND Surgery
DX: N62 Hypertrophy of breast (principal)
CPT/HCPCS: 76642; 77066; G0279; 77062